=== PATIENT | female | born 1985 | race African-American/Black ===

== ENCOUNTER 2024-06-05 16:21 | Emergency (ER) | payer OTHER, SELFPAY ==
[2024-06-05] VITALS (13 sets, daily range): BP systolic 118–157; BP diastolic 65–99; PULSE 71–90; RESP 16–22; TEMP 36.6; O2SAT 100
--- NOTE | ~2024-06-05 | XR_ITS ---
XR abdomen/kub 1V DATE: 06/05/2024 17:52 INDICATION: Epigastric pain, constipation. Evaluate stool burden. TECHNIQUE: 2 supine AP views COMPARISON: None FINDINGS: Nonspecific bowel gas pattern without evidence of obstruction or significant abnormal amoun t of fecal material. No visceromegaly or abnormal calcification is evident. The lung bases are clear. Included skeletal structures are unremarkable. IMPRESSION: No significant abnormality Reviewed, dictated and finalized at [facility]. Reviewed, dictated and finalized at [facility]. IMPRESSION: No significant abnormality
--- OUTSIDE RECORDS SUMMARY | 2024-06-05 16:23 | XMS_ITS | Clinical Summary ---
Author Organization [facility] Address [address] [place] [address] Phone Care Team Providers Care Game Operator Name Role Phone Provider, None Primary Care Provider Unavailabl e Allergies No known active allergies Medications metoclopramide (REGLAN) 10 MG Tablet Take 1 Tab by mouth 4 times daily as needed for Nausea. 15 Tab 0 02/05/2015 Active potassium chloride (KLOR-CON) 20 MEQ Pack Take 1 Packet by mouth daily. 2 Packet 0 02/05/2015 Active Social History Tobacco Use Types Packs/Day Years Used Date Smoking Tobacco: Never Comments Unknown Sex and Gender Information Value Date Recorded Sex Assigned at Not on file Legal Sex Female 10:18 AM [employer] Gender Identity Not on file Sexual Orientation Not on file Last Filed Vital Signs Vital Sign Reading Time Taken Comments Blood Pressure 104/74 02/05/2015 10:41 AM [employer] Pulse 102 02/05/2015 10:41 AM [employer] Temperature 36.4 C (97.5 F) 02/05/2015 10:41 AM [employer] Respiratory Rate 18 02/05/2015 10:41 AM [employer] Oxygen Saturation 97% 02/05/2015 10:41 AM [employer] Inhaled Oxygen Concentration - - Weight 51.3 kg (113 lb) 02/05/2015 10:41 AM [employer] Height 154.9 cm (5' 1 ) 02/05/2015 10:41 AM [employer] Body Mass Index 21.35 02/05/2015 10:41 AM [employer] Plan of Treatment Not on file Insurance MEDICAID [id number] Care Teams Game Operator Relationship Specialty Start Date End Date Provider, None [place] PCP - General 02/05/15
--- OUTSIDE RECORDS SUMMARY | 2024-06-05 16:23 | XMS_ITS | Data Portability ---
Author Organization [facility] IZZYIsadora Garcia Address [address] [place] [address] Care Team Providers Care Laborer Cement Gun Placing Name Role Phone CELINE ARRINGTON Primary Care Provider [phone] Assessment No assessment recorded. Plan of Treatment Reminders Order Date Submit Date Provider Last Modified By Organization Details Last Modified Time Details Appointments None recorded. Lab microalbu min/creat inine, mass ratio, urine 023 023 APOLONIA FER, [address] [place] [address], [address], [place], [address], 3 05:11:16 BMP, serum or plasma 023 023 WARSAW FER, [address] [place] [address], [place] [address], [place], [address], 3 07:13:01 HbA1c (hemoglob in A1c), blood 023 023 WARSAW FER, [address] [place] [address], [address], [place], [address], 3 05:11:17 CBC w/ auto diff 023 023 WARSAW FER, [address] [place] [address], [place] [address], [place], [address], 3 05:08:50 iron + TIBC + ferritin, serum 023 023 APOLONIA FER, [address] [place] [address], [address], [place], [address], 3 07:13:36 TSH, ultra-sen sitive, serum 023 023 [facility], [address], [address], [place], [address], 3 07:13:35 vitamin D, 25-hydrox y, total, serum 023 023 [facility], [address], [address], [place], [address], 3 07:13:36 Referral None recorded. Procedures None recorded. Surgeries None recorded. Imaging None recorded. Medication Orders Miralax 17 gram oral powder packet 025 025 [id number], [address] [place], [address], 5 07:58:16 Patient Targets Encounter Date Encounter Id Patient Goals Patient Target Last Modified By Organization Details Last Modified Time 0.5 [email or web address] Not available 01/07/20 14:53:11 Patient Instructions Encounter Date Encounter Id Patient Instructions Last Modified By Organization Details Last Modified Time 05/09/2022 [id number] A healthy lifestyle: care instructions Not available 05/12/2022 22:48:21 1.Your blood pressure goal is less than 140/90. 2.It is important to maintain a healthy weight. 3.Try to exercise at least 30 min per day 3-5 time a week. 4. Do not salt foods. 5. If you smoke, you should quit. 6. Drink alcohol in moderation: 2, 8 oz drinks for males and 1, 8oz drink for females. Not available 05/12/2022 21:39:26 I was present and available in the Family Medicine clinic to discuss this patient's care for the duration of the appointment. I agree with the resident's assessment and plan as documented with the following addendum: None. Dr. Tameka Paredes MD Attending Physician, [facility]. [email or web address] Not available 05/16/2022 23:07:33 08/05/2022 [id number] A healthy lifestyle: care instructions Not available 08/05/2022 19:36:39 I was present and available in the family medicine clinic to discuss the patient's care during the appointment and the case was discussed with me. I agree with the resident's assessment and plan as documented. HL [email or web address] Not available 08/09/2022 16:56:31 04/16/2024 [id number] A healthy lifestyle: care instructions Not available 04/17/2024 07:58:13 I was present and available in the Family Medicine clinic to discuss this patient's care for the duration of the appointment. I agree with the resident's assessment and plan as documented with the following addendum: None. Dr. Lissette Guy MD, FMOB Attending Physician, [facility]. [email or web address] Not available 04/20/2024 13:10:46 Reason for Referral None Reported. Results Created Date Observation Date Name Description Value Unit Range Abnormal Flag Note LastModifiedBy Organization Detail LastModifiedTime 05/09/1905/10/2022 TSH REFLE X TO T4 TSH 1.830 uIU/m L 0.450- 4.500 Not Available [facility] ([facility]) [address] [place], [address], 05/10/2022 07:13:35 05/09/1905/10/2022 FE+TI BC+FE R iron bind.cap.(TI BC) 354 ug/dL 250-45 0 Not Available [facility] ([facility]) [address] [place], [address], 05/10/2022 07:13:36 05/09/1905/10/2022 FE+TI BC+FE R UIBC 240 ug/dL 131-42 5 Not Available [facility] ([facility]) [address] [place], [address], 05/10/2022 07:13:36 05/09/1905/10/2022 FE+TI BC+FE R iron 114 ug/dL 27-159 Not Available [facility] ([facility]) [address] [place], [address], 05/10/2022 07:13:36 05/09/1905/10/2022 FE+TI BC+FE R iron saturation 32 % 15-55 Not Available [facility] ([facility]) [address] [facility], [place], [address], 05/10/2022 07:13:36 05/09/1905/10/2022 FE+TI BC+FE R ferritin 41 NG/mL 15-150 Not Available [facility] ([facility]) [address] [facility], [place], [address], 05/10/2022 07:13:36 05/09/1905/10/2022 VITAM IN D, 25-HY DROXY vitamin D, 25-hydroxy 34.7 NG/mL 30.0-1 00.0 Vitam in D defic iency has been defin ed by the Insti tute of Medic ine and an Endoc rine Socie ty pract ice guide line as a level of serum 25-OH vitam in D less than 20 ng/mL (1,2) . The Endoc rine Socie ty went on to [facility] er defin e vitam in D insuf ficie ncy as a level betwe en 21 and 29 ng/mL (2). 1. IOM (Inst itute of Medic ine). 2010. Dieta ry refer ence intak es for calci um and D. Sebastian martinez [place]: The Natio [facility] Press . 2. Corazon mendoza MF, Elijah edwards [place], Nerissa off-F tutu i LANGLEY, et al. Evalu ation , treat ment, and preve ntion of vitam in D defic iency : an Endoc rine Socie ty clini kathy pract ice guide line. JCEM. 2010; 96(7) :1911 -30. Not Available [facility] ([facility]) [address] [facility], [place], [address], 05/10/2022 07:13:36 05/09/1905/10/2022 CBC WITH DIFFE RENTI AL/PL ATELE T WBC 6.9 x10e3 /uL 3.4-10 .8 Not Available [facility] ([facility]) [address] [facility], [place], [address], 05/14/2022 05:08:50 05/09/1905/10/2022 CBC WITH DIFFE RENTI AL/PL ATELE T RBC 4.53 x10e6 /uL 3.77-5 .28 Not Available [facility] ([facility]) [address] [facility], [place], [address], 05/14/2022 05:08:50 05/09/1905/10/2022 CBC WITH DIFFE RENTI AL/PL ATELE T hemoglobin 12.9 g/dL 11.1-1 5.9 Not Available [facility] ([facility]) [address] [facility], [place], [address], 05/14/2022 05:08:50 05/09/1905/10/2022 CBC WITH DIFFE RENTI AL/PL ATELE T hematocrit 39.4 % 34.0-4 6.6 Not Available [facility] ([facility]) [address] [facility], [place], [address], 05/14/2022 05:08:50 05/09/1905/10/2022 CBC WITH DIFFE RENTI AL/PL ATELE T MCV 87 fL 79-97 Not Available [facility] ([facility]) [address] [place], [address], 05/14/2022 05:08:50 05/09/1905/10/2022 CBC WITH DIFFE RENTI AL/PL ATELE T MCH 28.5 pg 26.6-3 3.0 Not Available [facility] ([facility]) [address] [place], [address], 05/14/2022 05:08:50 05/09/1905/10/2022 CBC WITH DIFFE RENTI AL/PL ATELE T MCHC 32.7 g/dL 31.5-3 5.7 Not Available [facility] ([facility]) [address] [facility], [place], [address], 05/14/2022 05:08:50 05/09/1905/10/2022 CBC WITH DIFFE RENTI AL/PL ATELE T RDW 13.0 % 11.7-1 5.4 Not Available [facility] ([facility]) [address] [facility], [place], [address], 05/14/2022 05:08:50 05/09/1905/10/2022 CBC WITH DIFFE RENTI AL/PL ATELE T platelets 271 x10e3 /uL 150-45 0 Not Available [facility] ([facility]) [address] [facility], [place], [address], 05/14/2022 05:08:50 05/09/1905/10/2022 CBC WITH DIFFE RENTI AL/PL ATELE T neutrophils 48 % notest ab. Not Available [facility] ([facility]) [address] [facility], [place], [address], 05/14/2022 05:08:50 05/09/1905/10/2022 CBC WITH DIFFE RENTI AL/PL ATELE T lymphs 43 % notest ab. Not Available [facility] ([facility]) [address] [facility], [place], [address], 05/14/2022 05:08:50 05/09/19 23 05/10/2022 CBC WITH DIFFE RENTI AL/PL ATELE T monocytes 8 % notest ab. Not Available [facility] ([facility]) [address] [facility], [place], [address], 05/14/2022 05:08:50 05/09/19 23 05/10/2022 CBC WITH DIFFE RENTI AL/PL ATELE T eos 1 % notest ab. Not Available [facility] ([facility]) [address] [facility], [place], [address], 05/14/2022 05:08:50 05/09/1905/10/2022 CBC WITH DIFFE RENTI AL/PL ATELE T basos 0 % notest ab. Not Available [facility] ([facility]) [address] [place], [address], 05/14/2022 05:08:50 05/09/1905/10/2022 CBC WITH DIFFE RENTI AL/PL ATELE T neutrophils (absolute) 3.2 x10e3 /uL 1.4-7. 0 Not Available [facility] ([facility]) [address] [place], [address], 05/14/2022 05:08:50 05/09/19 23 05/10/2022 CBC WITH DIFFE RENTI AL/PL ATELE T lymphs (absolute) 3.0 x10e3 /uL 0.7-3. 1 Not Available [facility] ([facility]) [address] [place], [address], 05/14/2022 05:08:50 05/09/1905/10/2022 CBC WITH DIFFE RENTI AL/PL ATELE T monocytes(ab solute) 0.6 x10e3 /uL 0.1-0. 9 Not Available [facility] ([facility]) [address] [place], [address], 05/14/2022 05:08:50 05/09/19 23 05/10/2022 CBC WITH DIFFE RENTI AL/PL ATELE T eos (absolute) 0.1 x10e3 /uL 0.0-0. 4 Not Available [facility] ([facility]) [address] [place], [address], 05/14/2022 05:08:50 05/09/19 23 05/10/2022 CBC WITH DIFFE RENTI AL/PL ATELE T baso (absolute) 0.0 x10e3 /uL 0.0-0. 2 Not Available [facility] ([facility]) [address] [facility], [place], [address], 05/14/2022 05:08:50 05/09/1905/10/2022 CBC WITH DIFFE RENTI AL/PL ATELE T immature granulocytes 0 % notest ab. Not Available [facility] ([facility]) [address] [place], [address], 05/14/2022 05:08:50 05/09/19 23 05/10/2022 CBC WITH DIFFE RENTI AL/PL ATELE T immature grans (abs) 0.0 x10e3 /uL 0.0-0. 1 Not Available [facility] ([facility]) [address] [facility], [place], [address], 05/14/2022 05:08:50 08/06/19 23 08/06/2022 ALBUM IN/CR EAT RATIO , RANDO M UR creatinine, urine 100.7 mg/dL notest ab. Not Available [facility] ([facility]) [address] [place], [address], 08/06/2022 05:11:16 08/06/19 23 08/06/2022 ALBUM IN/CR EAT RATIO , RANDO M UR albumin, urine 24.6 ug/mL notest ab. Not Available [facility] ([facility]) [address] [place], [address], 08/06/2022 05:11:16 08/06/19 23 08/06/2022 ALBUM IN/CR EAT RATIO , RANDO M UR alb/creat ratio 24 mg/g_ creat 0-29 Rea l: 0 - 29 Moder ately incre ased: 30 - 300 Sever sunitha incre ased: >300 Not Available [facility] ([facility]) [address] [facility], [place], [address], 08/06/2022 05:11:16 08/06/1908/06/2022 HEMOG LOBIN A1C hemoglobin A1C 5.8 % 4.8-5. 6 above high normal Predi abete s: 5.7 - 6.4 Diabe darling: >6.4 Glyce celena contr ol for adult s with diabe darling: <7.0 Not Available [facility] ([facility]) [address] [place], [address], 08/06/2022 05:11:17 08/06/1908/08/2022 BASIC METAB OLIC PANEL (8) glucose 98 mg/dL 70-99 Not Available [facility] ([facility]) [address] [place], [address], 08/08/2022 07:13:01 08/06/1908/08/2022 BASIC METAB OLIC PANEL (8) BUN 11 mg/dL 6-20 Not Available [facility] ([facility]) [address] [place], [address], 08/08/2022 07:13:01 08/06/19 23 08/08/2022 BASIC METAB OLIC PANEL (8) creatinine 0.62 mg/dL 0.57-1 .00 Not Available [facility] ([facility]) [address] [place], [address], 08/08/2022 07:13:01 08/06/1908/08/2022 BASIC METAB OLIC PANEL (8) eGFR 118 mL/mi n/1.7 3 >59 Not Available [facility] ([facility]) [address] [place], [address], 08/08/2022 07:13:01 08/06/19 23 08/08/2022 BASIC METAB OLIC PANEL (8) BUN/creatini ne ratio 18 9-23 Not Available [facility] ([facility]) [address] [facility] [place], [address], 08/08/2022 07:13:01 08/06/19 23 08/08/2022 BASIC METAB OLIC PANEL (8) sodium 140 mmol/ L 134-14 4 Not Available [facility] ([facility]) [address] [facility] [place], [address], 08/08/2022 07:13:01 08/06/19 23 08/08/2022 BASIC METAB OLIC PANEL (8) potassium 4.5 mmol/ L 3.5-5. 2 Not Available [facility] ([facility]) [address] [facility] [place], [address], 08/08/2022 07:13:01 08/06/19 23 08/08/2022 BASIC METAB OLIC PANEL (8) chloride 105 mmol/ L 96-106 Not Available [facility] ([facility]) [address] [facility] [place], [address], 08/08/2022 07:13:01 08/06/19 23 08/08/2022 BASIC METAB OLIC PANEL (8) carbon dioxide, total 22 mmol/ L 20-29 Not Available [facility] ([facility]) [address] [place], [address], 08/08/2022 07:13:01 08/06/19 23 08/08/2022 BASIC METAB OLIC PANEL (8) calcium 9.4 mg/dL 8.7-10 .2 Not Available [facility] ([facility]) [address] [place], [address], 08/08/2022 07:13:01 Result Notes None recorded. Problems Name Problem SNOMED Code Status Onset Date Resolution Date Notes Provider Name and Address Organization Details Recorded Time Elevated blood-press ure reading without diagnosis of hypertensio n 713056108 Active 2022 Celine Arrington MD Attn: Accountin g,[address], [place], [address], [place] [facility] 3 19:34:22 Uses contracepti on 70863330 Active Faith Coronado [place] null, [place] [facility] 5 11:12:46 Infective vaginitis 490149585 Active Amada Murphy [place], [place] [facility] 5 08:58:06 Anemia 918163132 Active Aliyah Isringhau sen [place], [place] [facility] 6 15:50:19 Anemia 851266620 Completed Aliyah Isringhau sen [place] [facility] 6 15:50:19 Constipatio n 10279759 Active Aliyah Isringhau sen [place] [facility] 6 15:50:19 Constipatio n 29918566 Completed Aliyah Isringhau sen [place], [place] [facility] 6 15:50:19 Problem Notes None recorded. Medical Equipment None Reported. Allergies No known drug allergies Medications Name Sig Start Date Stop Date Status Note LastModified by Organization Details LastModified Time Miralax 17 gram oral powder packet Take 1 packet every day by oral route for 14 days. 2024 active No refills required Not Available Not Available Not Available acetamino phen 325 mg tablet active Not Available Not Available No t Available fluconazo le 150 mg tablet Take 1 tablet as needed by oral route as directed for 1 day. 03/27 completed Not Available Not Available Not Available Compro 25 mg rectal supposito ry Insert 1 supposit ory every day by rectal route for 30 days. 03/27 completed Not Available Not Available Not Available pyridoxin e (vitamin B6) 25 mg tablet Take 1 tablet every 6 hours by oral route for 30 days. 2014 active Not Available Not Available Not Avai lable Vitamin tablet Take 1 tablet every day by oral route for 30 days. 2014 active Not Available Not Available Not Avai lable ferrous sulfate 325 mg (65 mg iron) tablet Take 1 tablet twice a day by oral route for 30 days. active Not Available Not Available No t Available docusate sodium 100 mg capsule Take 1 capsule twice a day by oral route for 30 days. 03/27 completed Not Available Not Available Not Available fluticaso ne propionat e 50 mcg/actua tion nasal spray,mariaelena pension active Not Available Not Available Not Available Unisom (doxylami ne) 25 mg tablet Take 1 tablet every 6-8 hours by oral route for 30 days. 2014 active Not Available Not Available Not Avai lable medroxypr ogesteron e 150 mg/mL intramusc ular suspensio n active Not Available Not Available Not Available loratadin e 10 mg tablet active Not Available Not Available Not Available metoclopr amide 10 mg tablet active Not Available Not Available No t Available nitrofura ntoin monohydra te/macroc rystals 100 mg capsule active Not Available Not Available Not Available vits 96-ferrou s fumarate 27 mg iron-foli c acid 800 mcg tablet active Not Available Not Available Not Available Diclegis 10 mg-10 mg tablet,de layed release Take 1 tablet as needed by oral route as directed . 03/27 completed Not Available Not Available Not Available Vitals Date Recorded Body height Body mass index (BMI) Body weight Body temperature Heart rate Oxygen saturation Oxygen saturation in Arterial blood by Pulse oximetry Systolic blood pressure Diastolic blood pressure Provider Name and Address Organization Details Last Updated DateTime 3 154.94 cm 36.5 kg/m2 85706.7 3 g 98.3 [degF] 86 /min 96 % 96 % 144 mm[Hg] 90 mm[Hg] Carol Cisneros CMA [facility] 3 11:41:47 Date Recorded Systolic blood pressure Diastolic blood pressure Provider Name and Address Organization Details Last Updated DateTime 05/09/2022 142 mm[Hg] 94 mm[Hg] Celine Arrington MD Attn: Accounting,[address] [facility], [place], [address], [facility] 05/09/2022 12:00:04 Date Recorded Body height Body mass index (BMI) Body weight Oxygen saturation Oxygen saturation in Arterial blood by Pulse oximetry Heart rate Body temperature Systolic blood pressure Diastolic blood pressure Provider Name and Address Organization Details Last Updated DateTime 3 154.94 cm 36.4 kg/m2 99249.1 9 g 98 % 98 % 86 /min 97.8 [degF] 129 mm[Hg] 81 mm[Hg] Erlin Ferris MA [facility] 3 10:09:46 Date Recorded Body height Body mass index (BMI) Body weight Heart rate Oxygen saturation Oxygen saturation in Arterial blood by Pulse oximetry Body temperature Systolic blood pressure Diastolic blood pressure Provider Name and Address Organization Details Last Updated DateTime 5 154.94 cm 33.9 kg/m2 51381.0 8 g 71 /min 99 % 99 % 97.9 [degF] 142 mm[Hg] 88 mm[Hg] Bertha Rehman MA [facility] 5 12:36:07 Date Recorded Systolic blood pressure Diastolic blood pressure Provider Name and Address Organization Details Last Updated DateTime 04/16/2024 132 mm[Hg] 85 mm[Hg] Celine Arrington MD Attn: Accounting[address] [place], [address], [facility] 04/17/2024 07:37:57 Social History Question Answer Notes LastModified by Organizat ion Details LastModified Time Tobacco Smoking Status Never Smoker Faith Coronado MA null, [facility] 01/19/2015 11:12:47 What Is Your Level Of Alcohol Consumption? None Information not available 05/09/2022 What Was The Date Of Your Most Recent Tobacco Screening? 04/16/2024 [email or web address] Information not available 04/16/2024 Do You Use Any Illicit Or Recreational Drugs? No Information not available 05/09/2022 Sex: Female Functional Status None recorded. Mental Status None recorded. Family History Nothing Reported. Medical History Condition Response Heart Problems N Other N Breast Cancer N Kidney or Bladder Problems N Thyroid Problems N Lung Disease N Depression N GI Problems N Acne N Eating Disorder N Breast Problem N Anemia N Anesthesia Complications N Headaches/Migraines N Anxiety Disorder N Ovarian Cancer N Diabetes N Blood Transfusions N Arthritis N Infertility N Polyps N Acid Reflux (GERD) N Cancer N Stroke N Abuse/Domestic Violence N Asthma N Endometriosis N High Cholesterol N Hepatitis N Heart Disease N Fibromyalgia N Pre-Eclampsia N Hypertension N Osteoporosis N Kidney Disease N Gynecological History Statement/Question Response Abnormal Pap N Sexually Active? Y On BCP's at Conception? N Menses Monthly N STIs/STDs N HPV Vaccine N Date of Last Pap Smear Duration of Flow (days) 5 Sexual Problems? Y LMP Approximate Obstetrics History GPAL:G 2 P 1 0 0 1 Type Value Multiple Births 0 Full Term 1 Induced 0 Spontaneous 0 Premature 0 Living 1 Ectopics 0 Total 2 Immunizations Vaccine Type Date Status Note Provider Nam e and Address Organization Details Recorded Time Influenza, split virus, trivalent, PF 01/30/2024 completed Celine Arrington MD Attn: Accounting[address] [place], [address], [facility] 04/17/2024 07:48:40 Influenza, split virus, quadrivalent, PF 01/06/2023 completed Erlin Ferris MA [facility] [place] [facility] 01/06/2023 14:54:00 Past Encounters Encounter ID Performer Location Encounter Start Date Encounter Closed Date Diagnosis/Indication Diagnosis SNOMED-CT Code Diagnosis ICD10 Code Diagnosis Note [id number] MD [facility] ([place] [address]) 2 [facility] [address] [address] 01/19/2015 10:48:11 01/19/2015 11:32:54 Gynecologic examination 35202981 Z01.419 80853651 Z33.1 test positive 068564480 Z32.01 [id number] Aliyah Murphyingservando en [facility] ([place] [address]) 2 [facility] [address] [address] 01/26/2015 09:36:40 01/26/2015 11:42:10 [id number] Z33.1 [id number] Marilu philip [address] [place] [address] 10/15/2019 12:03:23 10/26/2019 03:47:03 [id number] TAMEKA PAREDES MD [facility] [address] [facility] [address] [place] [address] 05/09/2022 11:29:57 05/13/2022 12:54:25 Fatigue 81849426 R53.83 Chronic, uncontroll ed.Pt reports fatigue and tiredness constantly . Reports enough sleep even though she works night shifts and has always.- Check iron levels, CBC r/o anemia- Check TSH- Check VitD- Discussed new stressors in life, diet, nutrition and exercise Elevated blood-pressure reading without diagnosis of hypertension 029303893 R03.0 BP in office is 144/90. Asymptomat ic. Reports mild headaches once/week which spontaneou sly resolve or relieved with NSAIDs.No previous diagnosis, not currently taking medication s. Previously diagnosed with preeclamps ia during most recent 01/2021. Follow up appointmen t per pt reports she was not prescribed any medication .- BP goal of <140/90 per JNC8 guidelines Comorbidit ies include obesity .- D/w patient increased risk for heart attack, stroke- Discussed home blood pressure monitoring and keeping blood pressure log for 2weeks.- Follow up in 4weeks for blood pressure check. If pressures are still elevated, can start ACEi/ARB- Plan to obtain BMP, Urin alb/Cr, A1c/ lipid panel- Recommende d 150 minutes of moderate-i ntensity exercise each week per AHA.- Counseled on weight loss with recommende d goal of 10%- Diet should be rich in vegetables , fruits and whole grains and low in salt- Recommend DASH or Mediterran gwen diet low fat dairy, poultry, fish, legumes, nuts. limit sugar sweetened beverages and red meats- Reduce salt intake- Advised limiting alcohol to 1 drinks per day- Call if any problems with LANGLEY, vision changes, and/or light headedness Obesity 299264238 E66.9 - BMI over 30 - D/w patient the increase risk of DM and cardiac - Discussed diet and exercise - Advised patient to limit soda, fast food, and alcohol - Encouraged meals balanced with vegetables , fruits and protein. Depression screening 171 107516 Z13.31 negative depression screeningP HQ9 score 0 [id number] Maris Babin RN [place] [id number] [address] [facility] [address] [place] [address] 08/05/2022 10:00:01 08/06/2022 16:29:18 Elevated blood-pressure reading without diagnosis of hypertension 816558483 R03.0 BP in office is 129/81. Asymptomat ic.No previous diagnosis, not currently taking medication s. Previously diagnosed with preeclamps ia during most recent 01/2021. Follow up appointmen t per pt reports she was not prescribed any medication .- BP goal of <130/80 per ACC/AHA guidelines Comorbidit ies include obesity- Discussed home blood pressure monitoring and implementi ng lifestyle changes as listed below- Plan to obtain BMP, Urin alb/Cr, A1c/ lipid panel- Recommende d 150 minutes of moderate-i ntensity exercise each week per AHA.- Counseled on weight loss- Diet should be rich in vegetables , fruits and whole grains and low in salt- Recommend DASH or Mediterran gwen diet low fat dairy, poultry, fish, legumes, nuts. limit sugar sweetened beverages and red meats- Reduce salt intake- Call if any problems with LANGLEY, vision changes, and/or light headedness Obesity [id number] E66.9 - BMI over 30- D/w patient the increase risk of DM and cardiac - Discussed diet and exercise- Advised patient to limit soda, fast food, and alcohol- Encouraged meals balanced with vegetables , fruits and protein. [id number] Erlin Ferris MA [facility] [address] [address] 01/06/2023 14:43:26 01/07/2023 14:37:52 Administration of influenza vaccine [id number] [id number] LISSETTE GUY MD [facility] [address] [address] 04/16/2024 11:40:26 04/21/2024 11:41:30 Elevated blood-pressure reading without diagnosis of hypertension [id number] R03.0 BP in office is 142/88. Asymptomat ic.Repeat 132/85, BP Goal per ACC/AHA guidelines <130/80No previous diagnosis, not currently taking medication s. Previously diagnosed with preeclamps ia during most recent 01/2021. Follow up appointmen t per pt reports she was not prescribed any medication .Comorbidi ties include obesity- Discussed home blood pressure monitoring and implementi ng lifestyle changes as listed below- Recommende d 150 minutes of moderate-i ntensity exercise each week per AHA.- Counseled on weight loss- Recommend DASH or Mediterran gwen diet- Reduce salt intake- Call if any problems with LANGLEY, vision changes, and/or light headedness Obesity [id number] E66.9 - BMI over 30- D/w patient the increase risk of DM and cardiac - Discussed diet and exercise- Advised patient to limit soda, fast food, and alcohol- Encouraged meals balanced with vegetables , fruits and protein. Depression screening 171 [id number] Z13.31 negative depression screeningP HQ9 score 2 Constipation [id number] K5 9.00 Acute, uncomplica princess. Sx for the past several days.No notable inciting events, no recent surgeries. PE positive for abdominal bloating- Discussed increased fiber in diet (list with high fiber foods and fruits shared), prune juice- encouraged to maintain adequate hydration- encouraged to keep stool and food diary for 2weeks- Rx for miralax sent to pharmacy, trial for 2weeks, if no improvemen t or other abdominal complaints RTC Adult heal th examination [id number] Z00.00 38 yo F- - all vaginal births - UTD on immunizati ons. -Pap/HPV co-testing 2020 WNL. [id number] - Mammogram not indicated at this time, no family hx of breast cancer Health Concerns Section Related Observation LastModified by Organization Detai ls LastModified Time None Recorded Concern Status LastModified by Organization Details LastModified Time None Recorded Advance Directives Directive None Recorded Payers Encounter Date Sequence Insurance Name Policy Number Policy Munoz Covered Member ID Munoz Member ID Guarantor Name 10/15/2019 1 *SELF PAY* Sc hnice Jimena 05/09/2022 1 *SELF PAY* Sc hnice Jimena 05/09/2022 1 [facility] ON OR AFTER 09/14/20 (MEDICAID REPLACEMENT - HMO) Dawitnice Jimena [id number] Schnice Jimena 08/05/2022 1 [facility] - DOS ON OR AFTER 20 (MEDICAID REPLACEMENT - HMO) Schnice Jimena [id number] Schnice Jimena 01/06/2023 1 [facility] - DOS ON OR AFTER 20 (MEDICAID REPLACEMENT - HMO) Schnice Jimena [id number] Schnice Jimena 04/16/2024 1 *SELF PAY* Sc hnice Jimena Notes Date Note Type Note Provider Name and Address Organization Details Recorded Time 05/09/2022 text/html 37 y/o F present s to establish care .Voices the following complaints, concerns, questions:- fatigue- PMHx: n/aPSHx: n/aOB/RECRUITMENT SPECIALIST Hx: [id number]: Stopped Depo shot Feb 2022, still spotting occasionallyMeds: n/aAllergies: n/aFam Hx: Both Parents: Diabetes, HTNSoc Hx:-Smoking: no- Tobacco: no- Alcohol: occasionally- Cannabis: no- Illicits: no-Screenings: Pap Smear (Nov 2020 - WNL), HIV (negative in 2020)-Vaccines: UTD fatiguePt reports increased fatigue, no matter how much rest she gets. reports ongoing for almost a year now. She reports low energy levels. Endorses headaches occasionally,Jamie es dizziness, vision changes, shortness of breath, chest pain, diarrhea, n/v, constipation, lower extremity swelling. TAMEKA PAREDES MD Attn: [address] [place], [address], [facility] 05/16/2022 23:07:37 08/05/2022 text/html Pt presents for blood pressure follow up. Pt kept log of BP but was not consistent.Patien t denies any symptoms of dizziness, LANGLEY, SOB, chest pain, leg swelling. Maris Babin RN [facility], [facility] 07/07/2023 12:12:12 04/16/2024 text/html 38F presents for annual exam. Pt reports stomach pain localized to the epigastric region that comes and goes without radiation on going for 1-2weeks. She thinks that the pain is associated with food and relieved with Aleve. She also states that she has been bloated and constipated, only having one bowel movement per week (which is unusual for her) with barely any feces production. Denies any pain with defecation, pain not relieved with defecation. Pt denies heartburn, hematochezia, previous history of epigastric pain, and any history of GI disorders.Pt denies f/c/n/v, headaches, dizziness, SOB, chest pain, abdominal pain, diarrhea, LE swelling. LISSETTE GUY MD Attn: [address]ing[address] [place], [address], [place] [facility] 04/20/2024 13:11:01 OBGyn Episode Ob Episode Information Episode Created Date Number of Fetuses Patient Bloodtype Patient rh Status Prepregnancy Weight lbs Domestic Partner Domestic Partner Phone Father Name Garment Patternmaker Status 01/26/20 15 1 A Positive CLOSED Fetus Data First Name Last Name Admitted to NICU Weight (g) Sex Living Outcome Pediatric Complications Fetus ID Race Codes Race Delivery Type trans [id number] Problems Problem Notes Problem Name Start Date End Date Resolution Snomed Code Not e Anemia [id number] Constipation [id number] Robel Calculation Initial Robel Date Initial Exam Date Initial Exam Provider Initial Ultrasound Date Last Menstrual Period Date Ultra Sound Weeks Gestation 09/18/2015 01/25/2015 [email or web address] 01/31/2015 11/12/2014 7 Eighteen To Twenty Week Robel Update Ultra Sound Date Fundal Height At Umbil Quickening Date Ultra Sound Latest Weeks Gestation Final Robel Confirmed By Final Robel Confirmed Date Final Robel Date Ultra Sound Latest Days Gestation 0 okolade 02/01/2015 09/18/19 16 0 Pre- Flowsheet Flowsheet Date 01/26/2015 Carnes Score Blood Edema Fundus Height Fundus Units Glucose Ketones Leukocytes Nitrite Labor Signs Protein Cervic Dilation Cervic Effacement Cervic Station Type Weight in lbs Pre/Post Dialysis Refused 113.77377072582 BP Diastolic BP Location Tested BP Systolic BP Type 52 98 sitting Fetus Heart Rate Present A Present Fetus Movement Comments Patient refers nausea. Did n ot pickling operator the prescription for diclegis and insurance would not pay for it. Patient was however given a sample prescription for diclegis today. Results of wet mount was reviewed with the patient. precautions given. Menstrual History Last Menstrual Date Menses Monthly On Bcp Conception Prior Menses Frequency Hcg Plus Date Menarche Onset Age 0811/12/2014 false Delivery Information Delivery Date Delivery Type Labor Anesthesia Weeks Gestation Incision Type Labor Labor Length Hrs Delivered By Post Complications Tubal Sterilization Discharge Date Comments 6 23.2 trans trans to [facility] Discharge Information Feeding Method Contraceptive Method Maternal HG B and HCT Levels
--- OUTSIDE RECORDS SUMMARY | 2024-06-05 16:23 | XMS_ITS | Referral Summary ---
Author Organization [facility] Address [address] [place] [phone] Care Team Providers Care Waiter Waitress Name Role Phone No, Physician Primary Care Provider [phone] Allergies No known active allergies Medications nitrofurantoin monohydrate (MACROBID) 100 mg capsule Take 1 capsule (100 mg total) by mouth 2 (two) times a day Antibiotic for urinary tract infection. Collaborating physician Kiel Stein MD 10 capsule 2 Active naproxen (NAPROSYN) 375 mg tablet Take 1 tablet (375 mg total) by mouth 2 (two) times a day with meals P.r.n. pain. Collaborating physician Kiel Stein MD 20 tablet 2 Active cyclobenzaprine (FLEXERIL) 5 mg tablet Take 1 tablet (5 mg total) by mouth 3 (three) times a day as needed (Take as directed to relax muscles) Collaborating physician Kiel Stein MD 20 tablet 2 Active Active Problems Problem Noted Date Diagnosed Date Lumbar strain, initial encounter 07/01/2021 Urinary tract infection in female 07/01/2021 Immunizations Immunization Administration Dates Next Due Influenza, Quadrivalent, Spl it, Preservative Free, Intramuscular 01/06/2023 Social History Tobacco Use Types Packs/Day Years Used Date Smoking Tobacco: Never Smokeless Tobacco: Never AUDIT-C Answer Date Recorded Q1: How often do you have a drink containing alc ohol? 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 Gender Identity Not on file Sexual Orientation Not on file Last Filed Vital Signs Vital Sign Reading Time Taken Comments Blood Pressure 133/100 07/01/2021 3:51 PM CDT Pulse 105 07/01/2021 3:51 PM CDT Temperature 36.8 C (98.2 F) 07/01/2021 3:51 PM CDT Respiratory Rate 18 07/01/2021 3:51 PM CDT Oxygen Saturation 100% 07/01/2021 3:51 PM CDT Inhaled Oxygen Concentration - - Weight 74.8 kg (165 lb) 07/01/2021 3:51 PM CDT Height 154.9 cm (5' 1 ) 12/13/2020 11:46 AM CDT Body Mass Index 31.18 12/13/2020 11:46 AM CDT Plan of Treatment Not on file Insurance [facility] CHOICE PLUS IDPA Care Teams Waiter Waitress Relationship Specialty Start Date End Date No, Physician PCP - General 12/13/20
--- OUTSIDE RECORDS SUMMARY | 2024-06-05 16:23 | XMS_ITS | Clinical Summary ---
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 Gender Identity Not on file Sexual Orientation Not on file Obstetrics History Para Term AB IAB SAB Ectopic Multiple Livin g Live Births 3 2 2 2 2 Date Outcome GA Total Labor Labor/2nd/3rd Weight Sex Type Anes PTL Cindy A1 A5 Name Clin 2005 Term M Vag-S pont Epidur al N Livin g [place] on White Complications:None Delivery Location:[facility] 2015 Term F Vag-S pont Epidur al N Livin g [place] na [place] on Complications:None Delivery Location:[facility] Last Filed Vital Signs Vital Sign Reading [...] 12/13/2020 11:46 AM CDT Plan of Treatment Health Maintenance Due Date Last Done Comments Cervical Cancer Screening 1985 Depression Screening 1985 Hepatitis C Screening 1985 DTaP/Tdap/Td Vaccine (1 - Tdap) 1996 Varicella Vaccines (1 of 2 - 13+ 2-dose series) 1998 Hepatitis B Screening 2003 Regular Well Visit/Exam 18-64 2003 Influenza Vaccine (#1) 2023 01/06/2023 HPV Vaccines Aged Out No longer eligi ble based on patient's age to complete this topic Pneumococcal vaccine <65 Aged Out No longer eligible based on patient's age to complete this topic Insurance [facility] CHOICE PLUS IDPA Care Teams Virtual Assistant For Advertisers Relationship Specialty Start Date End Date No, Physician PCP - General 12/13/20
--- OUTSIDE RECORDS SUMMARY | 2024-06-05 16:24 | XMS_ITS | Clinical Summary ---
Author Organization [facility] Address [address] [place] [address] Care Team Providers Care Theatre Professor Name Role Phone None, Provider MD Primary Care Provider Unavaila ble Allergies No known active allergies Medications [facility] B6 100 MG Tab 1 Active vitamin, low iron, ( VITAMIN WITH IRON) 27-0.8 MG tablet Take 1 tablet by mouth daily. Active benzocaine-men thol 20-0.5 % Aerosol Apply 1 spray topically 4 (four) times daily as needed (Perineal discomfort). 78 g 1 Active docusate sodium 100 MG capsule Take 1 capsule (100 mg total) by mouth 2 (two) times daily as needed for Constipation. 30 capsule 1 Active ferrous fumarate-vitam in C CR 65-25 MG tablet Take 1 tablet by mouth daily with breakfast. 90 tablet 1 Active ibuprofen 600 MG tablet Take 1 tablet (600 mg total) by mouth every 6 (six) hours. 90 tablet 1 Active acetaminophen 325 MG tablet acetaminophen 325 mg tablet Active doxylamine (UNISOM SLEEPTABS) 25 MG tablet Unisom (doxylamine) 25 mg tablet Take 1 tablet every 6-8 hours by oral route for 30 days. Active NIFEdipine XL 30 MG 24 hr tablet Take 2 tablets (60 mg total) by mouth daily. 30 tablet 1 1 Active Active Problems Problem Noted Date Diagnosed Date hypertension (HHS/HCC) 02/01/2021 Preeclampsia in period (HHS/HCC) 01/15 Family History Medical History Relation Comments CHF Maternal Grandfather Cancer Maternal Grandfather Diabetes Maternal Grandfather Kidney Disease Maternal Grandfather Cancer Maternal Grandmother Hypertension Mother Relation Status Comments Father Alive Maternal Grandfather Alive Maternal Grandmother Mother Alive Paternal Grandfather Paternal Grandmother Social History Tobacco Use Types Packs/Day Years Used Date Smoking Tobacco: Never Smokeless Tobacco: Never Alcohol Use Standard Drinks/Week Comments Not Currently 0 (1 standard drink = 0.6 oz pur e alcohol) Humiliation, Afraid, Rape, and Kick questionnair e Answer Date Recorded Within the last year, have y ou been afraid of your partner or ex-partner? No 02/02/2021 Within the last year, have y ou been humiliated or emotionally abused in other ways by your partner or ex-partner? No Within the last year, have y ou been kicked, hit, slapped, or otherwise physically hurt by your partner or ex-partner? No 02/02/2021 Within the last year, have y ou been raped or forced to have any kind of sexual activity by your partner or ex-partner? No 02/02/2021 Depression Answer Date Recor ded Last EPDS Total Score 1 01/28/2021 Last EPDS Self Harm Result Hardly ever 01/28 Comments No Sex and Gender Information Value Date Recorded Sex Assigned at Not on file Legal Sex Female 4:24 PM CDT Gender Identity Not on file Sexual Orientation Not on file Last Filed Vital Signs Vital Sign Reading Time Taken Comments Blood Pressure 151/90 02/03/2021 11:42 AM PARTNER ALLIANCE MANAGER Pulse 80 02/03/2021 8:47 AM PARTNER ALLIANCE MANAGER Temperature 36.8 C (98.3 F) 02/03/2021 8:47 AM PARTNER ALLIANCE MANAGER Respiratory Rate 18 02/03/2021 8:47 AM PARTNER ALLIANCE MANAGER Oxygen Saturation 96% 02/03/2021 10:11 AM PARTNER ALLIANCE MANAGER Inhaled Oxygen Concentration - - Weight 81.2 kg (179 lb) 02/01/2021 9:04 PM PARTNER ALLIANCE MANAGER Height 162.6 cm (5' 4 ) 02/01/2021 9:04 PM PARTNER ALLIANCE MANAGER Body Mass Index 30.73 02/01/2021 9:04 PM PARTNER ALLIANCE MANAGER Plan of Treatment Health Maintenance Due Date Last Done Comments Cervical Cancer Screening Pap Smear (Age 30 to 64) Every 3 Years 1985 Annual Physical 1988 DTaP, Tdap and Td Vaccines (6 - Tdap) 08/22/1999 08/21/1999, 05/21/1991, 04/21/1987, Additional history exists Hepatitis C 2003 Cervical Cancer Screening Pap with HPV Testing (Age 30 to 64) Every 5 Years 2015 Cervical Cancer Screening with HPV 2015 COVID-19 Vaccine ( season) 2023 05/24/2020, 05/03/2020 Influenza Adult (#1) 2023 Hepatitis B Vaccines Completed 08/21/1999, 11/24/1996, 07/22/1996, Additional history exists HPV Vaccines Aged Out No longer eligi ble based on patient's age to complete this topic Meningococcal B Vaccine Aged Out No l onger eligible based on patient's age to complete this topic Meningococcal Vaccine Aged Out No anthony sydnie eligible based on patient's age to complete this topic Pneumococcal Vaccine: Pediatrics (0 to 5 Years) and At-Risk Patients (6 to 64 Years) Aged Out No longer eligible based on patient's age to complete this topic RSV Immunizations Under 20 Months Aged Out No longer eligible based on patient's age to complete this topic Insurance MEDICAID Advance Directives * Full Code (Latest Code Status on File) Date Activated Date Inactivated Comments 02/01/2021 8:38 PM 02/03/2021 3:38 PM * Full Code Date Activated Date Inactivated Comments 02/01/2021 8:17 PM 02/01/2021 8:38 PM * Full Code Date Activated Date Inactivated Comments 01/26/2021 7:38 AM 01/28/2021 10:04 PM Care Teams Theatre Professor Relationship Specialty Start Date End Date None, Provider, PCP - General 01/26/21
--- OUTSIDE RECORDS SUMMARY | 2024-06-05 16:24 | XMS_ITS | Encounter Summary ---
Author Organization [facility] Address [facility] [place] [address] Care Team Providers Care Public Health Educator Name Role Phone None, Provider Primary Care Provider Pura crook Encounter Details Date Type Department Care Team (Late st Contact Info) Description 02/12/2021 Hospital Follow-up Call [facility] [place] [address] Alexia Yoder, RN Social History Tobacco Use Types Packs/Day Years [...] on file Sexual Orientation Not on file COVID-19 Exposure Response Date Recorded In the last month, have you been in contact with someone who was confirmed or suspected to have Coronavirus / COVID-19? No / Unsure 02/01/2021 7:37 PM SPACE PHYSICIST documented as of this encounter Functional Status * RETIRED Are you deaf or do you have serious difficulty hearing Answer Date of Assessment Author Status No 02/02/2021 11:02 AM SPACE PHYSICIST Acti ve * RETIRED Are you blind or do you have serious difficulty seeing, even when wearing glasses? Answer Date of Assessment Author Status No 02/02/2021 11:02 AM SPACE PHYSICIST Acti ve * Do you have serious difficulty walking or climbing stairs? Answer Date of Assessment Author Status No 02/02/2021 11:02 AM Jane Lazaro RN Active * Do you have difficulty dressing or bathing? Answer Date of Assessment Author Status No 02/02/2021 11:02 AM Jane Lazaro RN Active * Because of a physical, mental, or emotional condition, do you have difficulty doing errands alone such as visiting a doctor's office or shopping? Answer Date of Assessment Author Status No 02/02/2021 11:02 AM Jane Lazaro RN Active documented as of this encounter Mental Status * Because of a physical, mental, or emotional condition, do you have serious difficulty concentrating, remembering, or making decisions? Answer Entry Date Author Status No 02/02/2021 11:02 AM Jane Lazaro RN Active documented in this encounter Plan of Treatment Not on file documented as of this encounter Visit Diagnoses Not on filedocumented in this encounter Care Teams Public Health Educator Relationship Specialty Start Date End Date None, Provider, PCP - General 01/26/21 documented as of this encounter
--- OUTSIDE RECORDS SUMMARY | 2024-06-05 16:24 | XMS_ITS | Data Portability ---
Author Organization [employer] [facility] , [facility] Address [address] [place] [address] Care Team Providers Care Medical Lab Scientist Name Role Phone [facility] Complex Care Assessment No assessment recorded. Plan of Treatment Reminders Order Date Submit Date Provider Last Modified By Organization Details Last Modified Time Details Appointments None recorded. Lab test, urine 2020 021 [facility], [address] [place], [address], 13:16:22 Referral None recorded. Procedures None recorded. Surgeries None recorded. Imaging None recorded. Medication Orders Depo-Canvas Baster Jumpbasting a 150 mg/mL intramuscul ar suspension [address] [facility] ([place], [place]Pharmacy #[id number], [address] [place], [address], 13:56:45 Patient TargetsNo targets recorded. Patient Instructions Encounter Date Encounter Id Patient Instructions Last Modified By Organization Details Last Modified Time 02/13/2021 [id number] edinburgh depression scale* [email or web address] Not available 03/02/2021 14:06:46 03/01/2021 [id number] [facility] at Home With Your Baby: Care Instructions [email or web address] Not available 03/01/2021 13:16:22 edinburgh depression scale* [email or web address] Not available 03/29/2021 16:06:24 Reason for Referral None Reported. Results Created Date Observation Date Name Description Value Unit Range Abnormal Flag Note LastModifiedBy Organization Detail LastModifiedTime 01/27/20 21 01/26/2021 CBC WITH DIFF WBC 5.1 x10'3 /uL 4.5-11 .0 Not Available [facility] (Lab) [address], [place], [address], 01/26/2021 09:19:49 01/27/20 21 01/26/2021 CBC WITH DIFF RBC 3.63 x10'6 /uL 4.20-5 .40 low Not Available [facility] (Lab) [address], [place], [address], 01/26/2021 09:19:49 01/27/2001/26/2021 CBC WITH DIFF hemoglobin 10.1 g/dL 12.0-1 6.0 low Not Available [facility] (Lab) [address], [place], [address], 01/26/2021 09:19:49 01/27/20 21 01/26/2021 CBC WITH DIFF hematocrit 32.3 % 38.0-4 8.0 low Not Available [facility] (Lab) [address], [place], [address], 01/26/2021 09:19:49 01/27/2001/26/2021 CBC WITH DIFF MCV 89.0 fL 81.0-9 9.0 Not Available [facility] (Lab) [address], [place], [address], 01/26/2021 09:19:49 01/27/2001/26/2021 CBC WITH DIFF MCH 27.8 pg 27.0-3 1.0 Not Available [facility] (Lab) [address], [place], [address], 01/26/2021 09:19:49 01/27/20 21 01/26/2021 CBC WITH DIFF MCHC 31.3 g/dL 32.0-3 6.0 low Not Available [facility] (Lab) [address] [facility], [place], [address], 01/26/2021 09:19:49 01/27/20 21 01/26/2021 CBC WITH DIFF platelet count 229 x10'3 /uL 130-40 0 Not Available [facility] (Lab) [address] [facility], [place], [address], 01/26/2021 09:19:49 01/27/20 21 01/26/2021 CBC WITH DIFF MPV 10.3 fL 9.3-12 .2 Not Available [facility] (Lab) [address] [place], [address], 01/26/2021 09:19:49 01/27/20 21 01/26/2021 CBC WITH DIFF diff type AUTOMA WILFREDO DIFFER ENTIAL Not Available [facility] (Lab) [address] [facility], [place], [address], 01/26/2021 09:19:49 01/27/20 21 01/26/2021 CBC WITH DIFF neutrophils 50.6 % Not Available [facility] (Lab) [address] [place], [address], 01/26/2021 09:19:49 01/27/20 21 01/26/2021 CBC WITH DIFF lymphocytes 36.6 % Not Available [facility] (Lab) [place], [address], 01/26/2021 09:19:49 01/27/20 21 01/26/2021 CBC WITH DIFF monocytes 11.2 % Not Available [facility] (Lab) [address] [place] [facility] [place], [address], 01/26/2021 09:19:49 01/27/20 21 01/26/2021 CBC WITH DIFF eosinophils 0.4 % Not Available [facility] (Lab) [address], [place], [address], 01/26/2021 09:19:49 01/27/20 21 01/26/2021 CBC WITH DIFF basophils 0.2 % Not Available [facility] (Lab) [address], [place], [address], 01/26/2021 09:19:49 01/27/2001/26/2021 CBC WITH DIFF immature granulocytes 1.0 % Not Available [facility] (Lab) [address] [facility], [place], [address], 01/26/2021 09:19:49 01/27/20 21 01/26/2021 CBC WITH DIFF abs. neutrophils 2.57 x10'3 /uL 1.80-7 .70 Not Available [facility] (Lab) [address] [facility], [place], [address], 01/26/2021 09:19:49 01/27/20 21 01/26/2021 CBC WITH DIFF abs. lymphocytes 1.86 x10'3 /uL 1.00-4 .80 Not Available [facility] (Lab) [address], [place], [address], 01/26/2021 09:19:49 01/27/2001/26/2021 CBC WITH DIFF abs. monocytes 0.57 x10'3 /uL 0.24-0 .86 Not Available [facility] (Lab) [address], [place], [address], 01/26/2021 09:19:49 01/27/20 21 01/26/2021 CBC WITH DIFF abs. eosinophils 0.02 x10'3 /uL 0.04-0 .36 low Not Available [facility] (Lab) [address], [place], [address], 01/26/2021 09:19:49 01/27/20 21 01/26/2021 CBC WITH DIFF abs. basophils 0.01 x10'3 /uL 0.01-0 .08 Not Available [facility] (Lab) [place], [address], 01/26/2021 09:19:49 01/27/20 21 01/26/2021 CBC WITH DIFF abs. immature grans 0.05 x10'3 /uL 0.00-0 .49 Not Available [facility] (Lab) [place], [address], 01/26/2021 09:19:49 01/27/20 21 01/26/2021 CBC WITH DIFF RBC morphology SLIDE REVIEW ED Not Available [facility] (Lab) [address] [facility], [place], [address], 01/26/2021 09:19:49 01/27/20 21 01/26/2021 CBC WITH DIFF polychromasi a 1+ Not Available [facility] (Lab) [place], [address], 01/26/2021 09:19:49 01/27/20 21 01/26/2021 CBC WITH DIFF gutierrez cells 1+ Not Available [facility] (Lab) [place], [address], 01/26/2021 09:19:49 01/27/20 21 01/26/2021 CBC WITH DIFF platelet estimate ADEQUA TE Not Available [facility] (Lab) [place], [address], 01/26/2021 09:19:49 01/27/20 21 01/26/2021 DRUGS OF ABUSE PANEL , URINE amphetamines , urine NEGATI VE neg Not Available [facility] (Lab) [place], [address], 01/26/2021 09:30:23 01/27/20 21 01/26/2021 DRUGS OF ABUSE PANEL , URINE barbituates, urine NEGATI VE neg Not Available [facility] (Lab) [place], [address], 01/26/2021 09:30:23 01/27/20 21 01/26/2021 DRUGS OF ABUSE PANEL , URINE benzodiazapi jonas, urine NEGATI VE neg Not Available [facility] (Lab) [place], [address], 01/26/2021 09:30:23 01/27/20 21 01/26/2021 DRUGS OF ABUSE PANEL , URINE cannabinoids /THC, urine NEGATI VE neg Not Available [facility] (Lab) [place], [address], 01/26/2021 09:30:23 01/27/20 21 01/26/2021 DRUGS OF ABUSE PANEL , URINE cocaine, urine NEGATI VE neg Not Available [facility] (Lab) [place], [address], 01/26/2021 09:30:23 01/27/20 21 01/26/2021 DRUGS OF ABUSE PANEL , URINE methadone, urine NEGATI VE neg Not Available [facility] (Lab) [place], [address], 01/26/2021 09:30:23 01/27/20 21 01/26/2021 DRUGS OF ABUSE PANEL , URINE opiates, urine NEGATI VE neg Not Available [facility] (Lab) [place], [address], 01/26/2021 09:30:23 01/27/20 21 01/26/2021 DRUGS OF ABUSE PANEL , URINE phencyclidin es, urine NEGATI VE neg NOTE: RESUL TS OF THIS DRUG SCREE N SHOUL D BE USED FOR MEDIC AL PURPO SES ONLY AND NOT FOR LEGAL OR EMPLO YMENT PURPO SES. POSIT IVON RESUL TS ARE NOT CONFI RMED. MEDIC ATION S CONTA INING EPHED RINE MAY CAUSE FALSE POSIT IVON AMPHE TAMIN E CALL [phone], LAB, TO REQUE ST CONFI RMATI ON TESTI NG. IF CREAT ININE IS <40 mg/dL . RECOL LECTI ON IS CHUNG MIRELES. AMPHE TAMIN E- 500 NG/ML ABILIO TURAT E- 200 NG/ML BENZO DIAZE PINES - 200 NG/ML THC- 50 NG/ML COCAI NE- 150 NG/ML METHA DONE- 300 NG/ML OPIAT E- 300 MG/ML PCP- 25 NG/ML Not Available [facility] (Lab) [place], [address], 01/26/2021 09:30:23 01/27/20 21 01/26/2021 DRUGS OF ABUSE PANEL , URINE creatinine, urine 48.8 mg/dL 28-217 Not Available [facility] (Lab) [place], [address], 01/26/2021 09:30:23 01/27/20 21 01/26/2021 UA REFLE X TO MICRO specimen type URINE CLEAN CATCH Not Available [facility] (Lab) [address] [facility], [place], [address], 01/26/2021 09:43:27 01/27/20 21 01/26/2021 UA REFLE X TO MICRO color LIGHT YELLOW Not Available [facility] (Lab) [place], [address], 01/26/2021 09:43:27 01/27/20 21 01/26/2021 UA REFLE X TO MICRO clarity TURBID Not Available [facility] (Lab) [place], [address], 01/26/2021 09:43:27 01/27/20 21 01/26/2021 UA REFLE X TO MICRO specific gravity 1.013 1.001- 1.030 Not Available [facility] (Lab) [place], [address], 01/26/2021 09:43:27 01/27/20 21 01/26/2021 UA REFLE X TO MICRO pH, urine 6.5 5.0-9. 0 Not Available [facility] (Lab) [place], [address], 01/26/2021 09:43:27 01/27/20 21 01/26/2021 UA REFLE X TO MICRO leukocytes 500 neg abnormal Not Available [facility] (Lab) [place], [address], 01/26/2021 09:43:27 01/27/20 21 01/26/2021 UA REFLE X TO MICRO nitrite NEGATI VE neg Not Available [facility] (Lab) [place], [address], 01/26/2021 09:43:27 01/27/20 21 01/26/2021 UA REFLE X TO MICRO protein NEGATI VE mg/dL <30 Not Available [facility] (Lab) [place], [address], 01/26/2021 09:43:27 01/27/20 21 01/26/2021 UA REFLE X TO MICRO glucose NORMAL mg/dL norm Not Available [facility] (Lab) [place], [address], 01/26/2021 09:43:27 01/27/20 21 01/26/2021 UA REFLE X TO MICRO ketone NEGATI VE mg/dL neg Not Available [facility] (Lab) [place], [address], 01/26/2021 09:43:27 01/27/20 21 01/26/2021 UA REFLE X TO MICRO urobilinogen NORMAL mg/dL norm Not Available [facility] (Lab) [place], [address], 01/26/2021 09:43:27 01/27/20 21 01/26/2021 UA REFLE X TO MICRO bilirubin NEGATI VE mg/dL neg Not Available [facility] (Lab) [place], [address], 01/26/2021 09:43:27 01/27/20 21 01/26/2021 UA REFLE X TO MICRO blood NEGATI VE neg Not Available [facility] (Lab) [place], [address], 01/26/2021 09:43:27 01/27/20 21 01/26/2021 UA REFLE X TO MICRO mucous RARE /lpf Not Available [facility] (Lab) [address], [place], [address], 01/26/2021 09:43:27 01/27/20 21 01/26/2021 UA REFLE X TO MICRO WBC 7 /hpf <6 high Not Available [facility] (Lab) [address], [place], [address], 01/26/2021 09:43:27 01/27/20 21 01/26/2021 UA REFLE X TO MICRO RBC 2 /hpf <6 Not Available [facility] (Lab) [address] [facility], [place], [address], 01/26/2021 09:43:27 01/27/20 21 01/26/2021 UA REFLE X TO MICRO bacteria FEW /hpf none abnormal Not Available [facility] (Lab) [address], [place], [address], 01/26/2021 09:43:27 01/27/20 21 01/26/2021 UA REFLE X TO MICRO squamous epithelial MODERA TE /hpf Not Available [facility] (Lab) [address], [place], [address], 01/26/2021 09:43:27 01/27/20 21 01/26/2021 TYPE AND SCREE N ABO/Rh(D) A POSITI VE Not Available [facility] (Lab) [address], [place], [address], 01/26/2021 09:43:50 01/27/20 21 01/26/2021 TYPE AND SCREE N antibody screen NEGATI VE Not Available [facility] (Lab) [address] [facility], [place], [address], 01/26/2021 09:43:50 01/27/20 21 01/26/2021 TYPE AND SCREE N xm expiration 2020,2 359 Not Available [facility] (Lab) [address] [facility], [place], [address], 01/26/2021 09:43:50 01/28/2001/27/2021 COMPR EHENS IVON METAB OLIC PANEL glucose 96 mg/dL 70-99 Not Available [facility] (Lab) [address] [facility], [place], [address], 01/27/2021 08:20:13 01/28/2001/27/2021 COMPR EHENS IVON METAB OLIC PANEL BUN 7 mg/dL 7-18 Not Available [facility] (Lab) [address] [facility], [place], [address], 01/27/2021 08:20:13 01/28/20 21 01/27/2021 COMPR EHENS IVON METAB OLIC PANEL creatinine 0.53 mg/dL 0.55-1 .02 low Not Available [facility] (Lab) [address] [facility], [place], [address], 01/27/2021 08:20:13 01/28/20 21 01/27/2021 COMPR EHENS IVON METAB OLIC PANEL sodium 138 mmol/ L 136-14 5 Not Available [facility] (Lab) [address] [facility], [place], [address], 01/27/2021 08:20:13 01/28/20 21 01/27/2021 COMPR EHENS IVON METAB OLIC PANEL potassium 3.6 mmol/ L 3.5-5. 1 Not Available [facility] (Lab) [address], [place], [address], 01/27/2021 08:20:13 01/28/20 21 01/27/2021 COMPR EHENS IVON METAB OLIC PANEL chloride 110 mmol/ L 100-10 8 high Not Available [facility] (Lab) [address] [facility], [place], [address], 01/27/2021 08:20:13 01/28/20 21 01/27/2021 COMPR EHENS IVON METAB OLIC PANEL total CO2 18.5 mmol/ L 21-32 low Not Available [facility] (Lab) [place], [address], 01/27/2021 08:20:13 01/28/20 21 01/27/2021 COMPR EHENS IVON METAB OLIC PANEL calcium 8.9 mg/dL 8.5-10 .1 Not Available [facility] (Lab) [place], [address], 01/27/2021 08:20:13 01/28/20 21 01/27/2021 COMPR EHENS IVON METAB OLIC PANEL total bilirubin 0.4 mg/dL 0.2-1. 2 THIS ASSAY IS NOT RECOM NERIS D FOR PATIE NTS UNDER GOING TREAT MENT WITH ELTRO MBOPA G DUE TO THE POTEN TIAL FOR FALSE LY ELEVA WILFREDO RESUL TS. Not Available [facility] (Lab) [place], [address], 01/27/2021 08:20:13 01/28/20 21 01/27/2021 COMPR EHENS IVON METAB OLIC PANEL total protein 6.9 g/dL 6.4-8. 2 Not Available [facility] (Lab) [place], [address], 01/27/2021 08:20:13 01/28/20 21 01/27/2021 COMPR EHENS IVON METAB OLIC PANEL albumin 2.3 g/dL 3.4-5. 0 low Not Available [facility] (Lab) [place], [address], 01/27/2021 08:20:13 01/28/20 21 01/27/2021 COMPR EHENS IVON METAB OLIC PANEL AST 33 U/L 15-37 Not Available [facility] (Lab) [address], [place], [address], 01/27/2021 08:20:13 01/28/20 21 01/27/2021 COMPR EHENS IVON METAB OLIC PANEL ALT 28 U/L 14-55 Not Available [facility] (Lab) [place], [address], 01/27/2021 08:20:13 01/28/20 21 01/27/2021 COMPR EHENS IVON METAB OLIC PANEL alk phosphatase 73 U/L 50-136 Not Available [facility] (Lab) [place], [address], 01/27/2021 08:20:13 01/28/20 21 01/27/2021 COMPR EHENS IVON METAB OLIC PANEL anion gap 9.5 mmol/ L 5-15 Not Available [facility] (Lab) [place], [address], 01/27/2021 08:20:13 01/28/20 21 01/27/2021 COMPR EHENS IVON METAB OLIC PANEL BUN creatinine ratio 13.1 6-26 Not Available [facility] (Lab) [place], [address], 01/27/2021 08:20:13 01/28/20 21 01/27/2021 COMPR EHENS IVON METAB OLIC PANEL A:g ratio 0.5 ratio 1.0-2. 0 low Not Available [facility] (Lab) [place], [address], 01/27/2021 08:20:13 01/28/20 21 01/27/2021 COMPR EHENS IVON METAB OLIC PANEL est GFR nonafroameri can >90 mL/mi n/1.7 3_M2 >90 Not Available [facility] (Lab) [place], [address], 01/27/2021 08:20:13 01/28/20 21 01/27/2021 COMPR EHENS IVON METAB OLIC PANEL est GFR afric/amer >90 mL/mi n/1.7 3_M2 >90 NOTE: eGFR is not calcu lated for patie nts <18 years of age. This is an estim ated GFR (CKD EPI) and shoul d not be used for calcu latin g drug doses . Not Available [facility] (Lab) [place], [address], 01/27/2021 08:20:13 01/28/20 21 01/27/2021 URIC ACID uric acid 4.7 mg/dL 2.6-6. 0 Not Available [facility] (Lab) [place], [address], 01/27/2021 08:20:15 01/29/20 21 01/28/2021 CBC WITH DIFF WBC 8.5 x10'3 /uL 4.5-11 .0 Not Available [facility] (Lab) [place], [address], 01/28/2021 06:51:05 01/29/20 21 01/28/2021 CBC WITH DIFF RBC 3.30 x10'6 /uL 4.20-5 .40 low Not Available [facility] (Lab) [address] [facility], [place], [address], 01/28/2021 06:51:05 01/29/20 21 01/28/2021 CBC WITH DIFF hemoglobin 9.2 g/dL 12.0-1 6.0 low Not Available [facility] (Lab) [address] [facility], [place], [address], 01/28/2021 06:51:05 01/29/20 21 01/28/2021 CBC WITH DIFF hematocrit 29.3 % 38.0-4 8.0 low Not Available [facility] (Lab) [address] [facility], [place], [address], 01/28/2021 06:51:05 01/29/20 21 01/28/2021 CBC WITH DIFF MCV 88.8 fL 81.0-9 9.0 Not Available [facility] (Lab) [address] [facility], [place], [address], 01/28/2021 06:51:05 01/29/20 21 01/28/2021 CBC WITH DIFF MCH 27.9 pg 27.0-3 1.0 Not Available [facility] (Lab) [address] [facility], [place], [address], 01/28/2021 06:51:05 01/29/20 21 01/28/2021 CBC WITH DIFF MCHC 31.4 g/dL 32.0-3 6.0 low Not Available [facility] (Lab) [place], [address], 01/28/2021 06:51:05 01/29/20 21 01/28/2021 CBC WITH DIFF platelet count 205 x10'3 /uL 130-40 0 Not Available [facility] (Lab) [address], [place], [address], 01/28/2021 06:51:05 01/29/2001/28/2021 CBC WITH DIFF MPV 9.6 fL 9.3-12 .2 Not Available [facility] (Lab) [address], [place], [address], 01/28/2021 06:51:05 01/29/20 21 01/28/2021 CBC WITH DIFF diff type MANUAL DIFFER ENTIAL Not Available [facility] (Lab) [address], [place], [address], 01/28/2021 06:51:05 01/29/20 21 01/28/2021 CBC WITH DIFF seg neutrophils 68 % Not Available [facility] (Lab) [address], [place], [address], 01/28/2021 06:51:05 01/29/20 21 01/28/2021 CBC WITH DIFF lymphocytes 24 % Not Available [facility] (Lab) [address], [place], [address], 01/28/2021 06:51:05 01/29/2001/28/2021 CBC WITH DIFF monocytes 6 % Not Available [facility] (Lab) [address], [place], [address], 01/28/2021 06:51:05 01/29/2001/28/2021 CBC WITH DIFF eosinophils 2 % Not Available [facility] (Lab) [address], [place], [address], 01/28/2021 06:51:05 01/29/20 21 01/28/2021 CBC WITH DIFF abs neutrophils calculated 5.78 x10'3 /uL 1.80-7 .70 Not Available [facility] (Lab) [place], [address], 01/28/2021 06:51:05 01/29/20 21 01/28/2021 CBC WITH DIFF abs lymphocytes calculated 2.04 x10'3 /uL 1.00-4 .80 Not Available [facility] (Lab) [address] [facility], [place], [address], 01/28/2021 06:51:05 01/29/20 21 01/28/2021 CBC WITH DIFF abs monocyte calculated 0.51 x10'3 /uL 0.24-0 .86 Not Available [facility] (Lab) [place], [address], 01/28/2021 06:51:05 01/29/20 21 01/28/2021 CBC WITH DIFF abs eosinophil calculated 0.17 x10'3 /uL 0.04-0 .36 Not Available [facility] (Lab) [place], [address], 01/28/2021 06:51:05 01/29/20 21 01/28/2021 CBC WITH DIFF RBC morphology SLIDE REVIEW ED Not Available [facility] (Lab) [place], [address], 01/28/2021 06:51:05 01/29/20 21 01/28/2021 CBC WITH DIFF anisocytosis 2+ Not Available [facility] (Lab) [place], [address], 01/28/2021 06:51:05 01/29/20 21 01/28/2021 CBC WITH DIFF poikilocytos is 2+ Not Available [facility] (Lab) [address], [place], [address], 01/28/2021 06:51:05 01/29/20 21 01/28/2021 CBC WITH DIFF microcytosis 1+ Not Available [facility] (Lab) [place], [address], 01/28/2021 06:51:05 01/29/20 21 01/28/2021 CBC WITH DIFF macrocytosis 1+ Not Available [facility] (Lab) [place], [address], 01/28/2021 06:51:05 01/29/20 21 01/28/2021 CBC WITH DIFF polychromasi a 2+ Not Available [facility] (Lab) [place], [address], 01/28/2021 06:51:05 01/29/20 21 01/28/2021 CBC WITH DIFF platelet estimate ADEQUA TE Not Available [facility] (Lab) [place], [address], 01/28/2021 06:51:05 02/03/2002/02/2021 MAGNE SIUM magnesium 5.5 mg/dL 1.8-2. 4 critical high RMN MENDEZ D CRITI AB RESUL TS AT 2020 0151 TO AND READ BACK BY LINDA NOGUERA Not Available [facility] (Lab) [place], [address], 02/02/2021 02:56:46 02/04/20 21 02/03/2021 COMPR EHENS IVON METAB OLIC PANEL glucose 81 mg/dL 70-99 Not Available [facility] (Lab) [place], [address], 02/03/2021 11:11:38 02/04/20 21 02/03/2021 COMPR EHENS IVON METAB OLIC PANEL BUN 13 mg/dL 7-18 Not Available [facility] (Lab) [place], [address], 02/03/2021 11:11:38 02/04/20 21 02/03/2021 COMPR EHENS IVON METAB OLIC PANEL creatinine 0.56 mg/dL 0.55-1 .02 Not Available [facility] (Lab) [place], [address], 02/03/2021 11:11:38 02/04/20 21 02/03/2021 COMPR EHENS IVON METAB OLIC PANEL sodium 141 mmol/ L 136-14 5 Not Available [facility] (Lab) [address] [facility], [place], [address], 02/03/2021 11:11:38 02/04/20 21 02/03/2021 COMPR EHENS IVON METAB OLIC PANEL potassium 3.8 mmol/ L 3.5-5. 1 Not Available [facility] (Lab) [place], [address], 02/03/2021 11:11:38 02/04/20 21 02/03/2021 COMPR EHENS IVON METAB OLIC PANEL chloride 110 mmol/ L 100-10 8 high Not Available [facility] (Lab) [place], [address], 02/03/2021 11:11:38 02/04/20 21 02/03/2021 COMPR EHENS IVON METAB OLIC PANEL total CO2 26.6 mmol/ L 21-32 Not Available [facility] (Lab) [place], [address], 02/03/2021 11:11:38 02/04/20 21 02/03/2021 COMPR EHENS IVON METAB OLIC PANEL calcium 7.7 mg/dL 8.5-10 .1 low Not Available [facility] (Lab) [address], [place], [address], 02/03/2021 11:11:38 02/04/20 21 02/03/2021 COMPR EHENS IVON METAB OLIC PANEL total bilirubin 0.3 mg/dL 0.2-1. 2 THIS ASSAY IS NOT RECOM NEIRS D FOR PATIE NTS UNDER GOING TREAT MENT WITH ELTRO MBOPA G DUE TO THE POTEN TIAL FOR FALSE LY ELEVA WILFREDO RESUL TS. Not Available [facility] (Lab) [address] [facility], [place], [address], 02/03/2021 11:11:38 02/04/20 21 02/03/2021 COMPR EHENS IVON METAB OLIC PANEL total protein 7.7 g/dL 6.4-8. 2 Not Available [facility] (Lab) [address], [place], [address], 02/03/2021 11:11:38 02/04/20 21 02/03/2021 COMPR EHENS IVON METAB OLIC PANEL albumin 2.9 g/dL 3.4-5. 0 low Not Available [facility] (Lab) [address], [place], [address], 02/03/2021 11:11:38 02/04/20 21 02/03/2021 COMPR EHENS IVON METAB OLIC PANEL AST 116 U/L 15-37 high Not Available [facility] (Lab) [address], [place], [address], 02/03/2021 11:11:38 02/04/20 21 02/03/2021 COMPR EHENS IVON METAB OLIC PANEL ALT 107 U/L 14-55 high Not Available [facility] (Lab) [place], [address], 02/03/2021 11:11:38 02/04/20 21 02/03/2021 COMPR EHENS IVON METAB OLIC PANEL alk phosphatase 123 U/L 50-136 Not Available [facility] (Lab) [place], [address], 02/03/2021 11:11:38 02/04/20 21 02/03/2021 COMPR EHENS IVON METAB OLIC PANEL anion gap 4.4 mmol/ L 5-15 low Not Available [facility] (Lab) [place], [address], 02/03/2021 11:11:38 02/04/20 21 02/03/2021 COMPR EHENS IVON METAB OLIC PANEL BUN creatinine ratio 23.3 6-26 Not Available [facility] (Lab) [place], [address], 02/03/2021 11:11:38 02/04/20 21 02/03/2021 COMPR EHENS IVON METAB OLIC PANEL A:g ratio 0.6 ratio 1.0-2. 0 low Not Available [facility] (Lab) [place], [address], 02/03/2021 11:11:38 02/04/20 21 02/03/2021 COMPR EHENS IVON METAB OLIC PANEL est GFR nonafroameri can >90 mL/mi n/1.7 3_M2 >90 Not Available [facility] (Lab) [place], [address], 02/03/2021 11:11:38 02/04/20 21 02/03/2021 COMPR EHENS IVON METAB OLIC PANEL est GFR afric/amer >90 mL/mi n/1.7 3_M2 >90 NOTE: eGFR is not calcu lated for patie nts <18 years of age. This is an estim ated GFR (CKD EPI) and shoul d not be used for calcu latin g drug doses . Not Available [facility] (Lab) [place], [address], 02/03/2021 11:11:38 02/04/20 21 02/03/2021 URIC ACID uric acid 4.2 mg/dL 2.6-6. 0 Not Available [facility] (Lab) [place], [address], 02/03/2021 11:11:39 02/04/20 21 02/03/2021 CBC WITH DIFF WBC 5.1 x10'3 /uL 4.5-11 .0 Not Available [facility] (Lab) [place], [address], 02/03/2021 11:30:49 02/04/20 21 02/03/2021 CBC WITH DIFF RBC 4.30 x10'6 /uL 4.20-5 .40 Not Available [facility] (Lab) [place], [address], 02/03/2021 11:30:49 02/04/20 21 02/03/2021 CBC WITH DIFF hemoglobin 12.1 g/dL 12.0-1 6.0 Not Available [facility] (Lab) [place], [address], 02/03/2021 11:30:49 02/04/20 21 02/03/2021 CBC WITH DIFF hematocrit 38.8 % 38.0-4 8.0 Not Available [facility] (Lab) [place], [address], 02/03/2021 11:30:49 02/04/20 21 02/03/2021 CBC WITH DIFF MCV 90.2 fL 81.0-9 9.0 Not Available [facility] (Lab) [address], [place], [address], 02/03/2021 11:30:49 02/04/2002/03/2021 CBC WITH DIFF MCH 28.1 pg 27.0-3 1.0 Not Available [facility] (Lab) [place], [address], 02/03/2021 11:30:49 02/04/20 21 02/03/2021 CBC WITH DIFF MCHC 31.2 g/dL 32.0-3 6.0 low Not Available [facility] (Lab) [place], [address], 02/03/2021 11:30:49 02/04/20 21 02/03/2021 CBC WITH DIFF platelet count 248 x10'3 /uL 130-40 0 Not Available [facility] (Lab) [place], [address], 02/03/2021 11:30:49 02/04/20 21 02/03/2021 CBC WITH DIFF MPV 9.6 fL 9.3-12 .2 Not Available [facility] (Lab) [place], [address], 02/03/2021 11:30:49 02/04/20 21 02/03/2021 CBC WITH DIFF diff type AUTOMA WILFREDO DIFFER ENTIAL Not Available [facility] (Lab) [address], [place], [address], 02/03/2021 11:30:49 02/04/20 21 02/03/2021 CBC WITH DIFF neutrophils 46.3 % Not Available [facility] (Lab) [address], [place], [address], 02/03/2021 11:30:49 02/04/20 21 02/03/2021 CBC WITH DIFF lymphocytes 41.6 % Not Available [facility] (Lab) [address], [place], [address], 02/03/2021 11:30:49 02/04/2002/03/2021 CBC WITH DIFF monocytes 10.5 % Not Available [facility] (Lab) [address], [place], [address], 02/03/2021 11:30:49 02/04/20 21 02/03/2021 CBC WITH DIFF eosinophils 1.0 % Not Available [facility] (Lab) [address], [place], [address], 02/03/2021 11:30:49 02/04/20 21 02/03/2021 CBC WITH DIFF basophils 0.2 % Not Available [facility] (Lab) [address], [place], [address], 02/03/2021 11:30:49 02/04/20 21 02/03/2021 CBC WITH DIFF immature granulocytes 0.4 % Not Available [facility] (Lab) [address], [place], [address], 02/03/2021 11:30:49 02/04/20 21 02/03/2021 CBC WITH DIFF abs. neutrophils 2.37 x10'3 /uL 1.80-7 .70 Not Available [facility] (Lab) [place], [address], 02/03/2021 11:30:49 02/04/20 21 02/03/2021 CBC WITH DIFF abs. lymphocytes 2.13 x10'3 /uL 1.00-4 .80 Not Available [facility] (Lab) [place], [address], 02/03/2021 11:30:49 02/04/20 21 02/03/2021 CBC WITH DIFF abs. monocytes 0.54 x10'3 /uL 0.24-0 .86 Not Available [facility] (Lab) [place], [address], 02/03/2021 11:30:49 02/04/20 21 02/03/2021 CBC WITH DIFF abs. eosinophils 0.05 x10'3 /uL 0.04-0 .36 Not Available [facility] (Lab) [place], [address], 02/03/2021 11:30:49 02/04/20 21 02/03/2021 CBC WITH DIFF abs. basophils 0.01 x10'3 /uL 0.01-0 .08 Not Available [facility] (Lab) [place], [address], 02/03/2021 11:30:49 02/04/20 21 02/03/2021 CBC WITH DIFF abs. immature grans 0.02 x10'3 /uL 0.00-0 .49 Not Available [facility] (Lab) [place], [address], 02/03/2021 11:30:49 02/04/20 21 02/03/2021 CBC WITH DIFF RBC morphology SLIDE REVIEW ED Not Available [facility] (Lab) [place], [address], 02/03/2021 11:30:49 02/04/20 21 02/03/2021 CBC WITH DIFF hypochromasi a 1+ Not Available [facility] (Lab) [place], [address], 02/03/2021 11:30:49 02/04/20 21 02/03/2021 CBC WITH DIFF platelet estimate ADEQUA TE Not Available [facility] (Lab) [place], [address], 02/03/2021 11:30:49 03/01/20 21 03/01/2021 pregn cleopatra test, urine HCG negati ve Not Available [facility] [address] [place], [address], 03/01/2021 12:55:31 Result Notes None recorded. Problems Name Problem SNOMED Code Status Onset Date Resolution Date Notes Provider Name and Address Organization Details Recorded Time Lochia finding Completed 201507/03/2016 Encounte r for routine postpart um follow-u p; Progress : Stable Added By: Saba Cuenca Add to Current Problems : NO ProblemS tatus: Resolve Not Available [facility] 2 14:00:20 Family planning educatio n done [id number] Completed 201512/01/2015 Family planning advice; Severity : Moderate Progress : Stable Added By: Saba Cuenca Add to Current Problems : NO ProblemS tatus: Resolve Not Available [facility] 19:13:21 Antenata l care: multipar ous, older than 35 years [id number] Completed 202011/17/2020 Supervis ion of elderly multigra lauren, first trimeste r; Progress : Stable Added By: Gary Duffy Add to Current Problems : NO ProblemS tatus: Resolve; Start Date : 08/03/19 Super vision of elderly multigra lauren, second trimeste r; Progress : Stable Added By: Cira Aguilar Add to Current Problems : NO ProblemS tatus: Resolve Not Available [facility] 2 21:20:21 Gestatio n period, 36 weeks [id number] Completed 201401/11/2021 36 weeks gestatio n of pregnanc y; Progress : Stable Added By: Loren Cerda Add to Current Problems : NO ProblemS tatus: Resolve Not Available [facility] 21:20:[address] Concept Completed 202011/17/2020 Supervis ion of other high risk pregnanc ies, first trimeste r; Progress : Stable Added By: Gary Duffy Add to Current Problems : NO ProblemS tatus: Resolve Not Available [facility] 2 14:00:20 Sampling of vagina for Papanico laou smear Completed 202011/17/2020 Encounte r for gynecolo gical examinat ion (general ) (routine ) without abnormal findings ; Progress : Stable Added By: Cira Aguilar Add to Current Problems : NO ProblemS tatus: Resolve Not Available [facility] 2 14:00:12 Uses depot contrace ption [id number] Completed 201506/14/2020 Initiati on of Depo Provera contrace ption; Location : None Severity : Moderate Progress : Stable Added By: Indu Medina Add to Current Problems : YES ProblemS tatus: Current Initiati on of Depo Provera contrace ption; Severity : Moderate Progress : Stable Added By: Indu Medina Add to Current Problems : NO ProblemS tatus: Resolve Not Available [facility] 19:13:22 Gestatio n less than 9 weeks [id number] Completed 202011/17/2020 Less than 8 weeks gestatio n of pregnanc y; Progress : Stable Added By: Annie Moore Add to Current Problems : NO ProblemS tatus: Resolve Not Available [facility] 2 21:20:21 Gestatio n period, 9 weeks 085870 Completed 202011/17/2020 9 weeks gestatio n of pregnanc y; Progress : Stable Added By: Gary Duffy Add to Current Problems : NO ProblemS tatus: Resolve Not Available [facility] 2 14:00:19 Gestatio n period, 24 weeks [id number] Completed 202011/17/2020 24 weeks gestatio n of pregnanc y; Progress : Stable Added By: Gissel Mobley Add to Current Problems : NO ProblemS tatus: Resolve Not Available [facility] 2 21:20:19 Clinical finding Completed 201506/14/2020 Encounte r for initial prescrip tion of injectab le contrace ptive; Severity : Moderate Progress : Stable Added By: Indu Medina Add to Current Problems : NO ProblemS tatus: Resolve Not Available [facility] 19:13:22 Gestatio n period, 20 weeks 57059157 Completed 202011/17/2020 20 weeks gestatio n of pregnanc y; Progress : Stable Added By: Cira Aguilar Add to Current Problems : NO ProblemS tatus: Resolve Not Available [facility] 2 21:20:18 Syphilis test finding 503314102 Completed 202011/17/2020 Encounte r for screenin g for infectio ns with a predomin antly sexual mode of transmis justine; Progress : Stable Added By: Annie Moore Add to Current Problems : NO ProblemS tatus: Resolve Not Available [facility] 2 21:20:19 Gestatio n period, 13 weeks 23194250 Completed 202011/17/2020 13 weeks gestatio n of pregnanc y; Progress : Stable Added By: Gary Duffy Add to Current Problems : NO ProblemS tatus: Resolve Not Available [facility] 2 14:00:19 Gestatio n period, 17 weeks [id number] Completed 202011/17/2020 17 weeks gestatio n of pregnanc y; Progress : Stable Added By: Cira Aguilar Add to Current Problems : NO ProblemS tatus: Resolve Not Available [facility] 2 14:00:20 Normal pregnanc y in [place] [id number] 4106 Completed 202011/17/2020 Encounte r for supervis ion of other normal pregnanc y, first trimeste r; Severity : Moderate Progress : Stable Added By: Gary Duffy Add to Current Problems : NO ProblemS tatus: Resolve; Start Date : 06/15/19 21 Encou nter for supervis ion of other normal pregnanc y, second trimeste r; Severity : Moderate Progress : Stable Added By: Gissel Mobley Add to Current Problems : NO ProblemS tatus: Resolve Encounte r for supervis ion of other normal pregnanc y, third trimeste r; Severity : Moderate Progress : Stable Added By: Loren Cerda Add to Current Problems : YES ProblemS tatus: Current; Start Date : 03/01/20 15 Not Available [facility] 1 19:28:16 Gestatio n period, 29 weeks [id number] Completed 202011/30/2020 29 weeks gestatio n of pregnanc y; Progress : Stable Added By: Bridget Mosher Add to Current Problems : NO ProblemS tatus: Resolve Not Available [facility] 21:20:17 Gestatio n period, 31 weeks 01303906 Completed 202012/15/2020 31 weeks gestatio n of pregnanc y; Progress : Stable Added By: Loren Cerda Add to Current Problems : NO ProblemS tatus: Resolve Not Available [facility] 14:00:15 Gestatio n period, 28 weeks [id number] Completed 202011/17/2020 28 weeks gestatio n of pregnanc y; Progress : Stable Added By: Loren Cerda Add to Current Problems : NO ProblemS tatus: Resolve Not Available [facility] 14:00:13 Postpart um care Completed 201507/03/2016 Visit for routine postpart um follow-u p; Location : None Progress : Stable Added By: Saba Cuenca Add to Current Problems : YES ProblemS tatus: Resolve Not Available [facility] 2 14:00:12 Gestatio n period, 33 weeks [id number] Completed 202012/28/2020 33 weeks gestatio n of pregnanc y; Progress : Stable Added By: Loren Cerda Add to Current Problems : NO ProblemS tatus: Resolve Not Available [facility] 2 14:00:15 Normal pregnanc y [id number] Completed 201410/02/2015 Medical visit for normal pregnanc y; Location : None Progress : Stable Added By: Juani Valencia Add to Current Problems : YES ProblemS tatus: Resolve Not Available [facility] 2 14:00:15 Gestatio n period, 38 weeks 77077909 Active 2020 38 weeks gestatio n of pregnanc y; Progress : Stable Added By: Loren Cerda Add to Current Problems : YES ProblemS tatus: Current Not Available [facility] 2 14:00:16 Gestatio n period, 37 weeks 24746096 Completed 202001/19/2021 37 weeks gestatio n of pregnanc y; Progress : Stable Added By: Loren Cerda Add to Current Problems : NO ProblemS tatus: Resolve Not Available [facility] 2 14:00:16 [facility] [id number] Active 2020 Encounte r for supervis ion of other normal pregnanc y, first trimeste r; Progress : Stable Added By: Gary Duffy Add to Current Problems : NO ProblemS tatus: Resolve; Start Date : 06/15/19 Encou nter for supervis ion of other normal pregnanc y, second trimeste r; Progress : Stable Added By: Gissel Mobley Add to Current Problems : NO ProblemS tatus: Resolve; Start Date : 08/16/19 Encou nter for supervis ion of other normal pregnanc y, third trimeste r; Progress : Stable Added By: Loren Cerda Add to Current Problems : YES ProblemS tatus: Current Not Available [facility] 2 14:00:16 Anemia Active 2020 Anemia complica ting pregnanc y, third trimeste r; Progress : Stable Added By: Loren Cerda Add to Current Problems : YES ProblemS tatus: Current Not Available [facility] 2 14:00:16 Clinical finding Active 2015 Initiati on of Depo Provera contrace ption; Location : None Progress : Stable Added By: Indu Medina Add to Current Problems : YES ProblemS tatus: Current Encounte r for initial prescrip tion of injectab le contrace ptive; Progress : Stable Added By: Shital Medinahael Add to Current Problems : NO ProblemS tatus: Resolve; Start Date : 10/02/19 16 Not Available [facility] 2 14:00:18 Antenata l screenin g for malforma tion Active 2020 Encounte r for antenata l screenin g for malforma tions; Progress : Stable Added By: Cira Aguilar Add to Current Problems : YES ProblemS tatus: Current Not Available [facility] 2 14:00:19 Gestatio n period, 35 weeks [id number] Completed 202001/05/2021 35 weeks gestatio n of pregnanc y; Progress : Stable Added By: Loren Cerda Add to Current Problems : NO ProblemS tatus: Resolve Not Available [facility] 2 21:20:18 Screenin g for malignan t neoplasm of cervix Completed 202011/17/2020 Encounte r for screenin g for malignan t neoplasm of cervix; Progress : Stable Added By: Cira Aguilar Add to Current Problems : NO ProblemS tatus: Resolve Not Available [facility] 2 21:20:18 Antenata l screenin g Completed 202001/11/2021 Antenata l screenin g; unspecif ied; Location : None Progress : Stable Added By: Juani Valencia Add to Current Problems : YES ProblemS tatus: Resolve; Start Date : 03/01/20 15 Encou nter for antenata l screenin g of mother; Progress : Stable Added By: Juani Valencia Add to Current Problems : NO ProblemS tatus: Resolve; Start Date : 03/01/20 15 Encou nter for antenata l screenin g for Streptoc occus B; Progress : Stable Added By: Loren Cerda Add to Current Problems : NO ProblemS tatus: Resolve Encounte r for other specifie d antenata l screenin g; Progress : Stable Added By: Loren Cerda Add to Current Problems : YES ProblemS tatus: Current; Start Date : 06/15/19 21 Not Available [facility] 21:20:23 Notes:Initiation of Depo Pro vera contraception (V25.02) ; OnsetDate: 02/01/2016; ResolvedDate: 06/14/2020; Progress: Stable Added By: Indu Goodrich Add to Current Problems: NO ProblemStatus: Resolve Family planning advice (V25.09) ; OnsetDate: 10/02/2015; ResolvedDate: 12/01/2015; Progress: Stable Added By: Saba Cuenca Add to Current Problems: NO ProblemStatus: Resolve Encounter for anatomic survey (V28.81) ; OnsetDate: 04/26/2015; ResolvedDate: 10/02/2015; Progress: Stable Added By: Carla Bravo Add to Current Problems: NO ProblemStatus: Resolve Problem Notes None recorded. Procedures Surgical History Date Name Laterality Status Provider Name and Address Organization Details Recorded Time 2 Depo Provera Injection completed Shy Flores [place] - [facility] 12/04/2021 13:56:07 2 Depo Provera Injection completed Yana Martinez [place] - [facility] 09/03/2021 15:18:37 2 Depo Provera Injection completed Prerna Mobley [facility] [employer] [facility] 05/31/2021 12:53:19 1 Depo Provera Injection completed Nancy Bronson [facility] - [employer] 03/01/2021 12:49:48 1 Date of Last Pap Smear completed Miguelina Hansen [facility] - [employer] 02/13/2021 13:14:50 Imaging Results None recorded. Procedure Notes None recorded. Medical Equipment None Reported. Allergies No known drug allergies Medications Name Sig Start Date Stop Date Status Note LastModified by Organization Details LastModified Time naproxen 375 mg tablet TAKE 1 TABLET (375 MG TOTAL) BY MOUTH 2 (TWO) TIMES A DAY WITH MEALS NEEDED FOR PAIN active Not Available Not Available No t Available nifedipin e ER 30 mg tablet,ex tended release 03/01 completed Not Available Not Available Not Available ferrous sulfate 325 mg (65 mg iron) tablet take 1 tablet (325 mg) by oral route once day 11/17 completed ferrous sulfate 325 mg (65 mg iron) oral tablet RxNorm: 927565 Allow Substitu tion: True Refill Denied: No Edited by: Bridget Yen ) on 11/18/19 Stopped by: Bridget Yen ) on 11/18/19 Not Available Not Available Not Available promethaz ine 25 mg tablet take 1 tablet (25 mg) by oral route every 6 hours 03/01 completed prometha zine 25 mg oral tablet RxNorm: [id number] Allow Substitu tion: True Refill Denied: No Edited by: Trudy Shea) on 07/08/19 Stopped by: Trudy Shea) on Not Available Not Available Not Available docusate sodium 100 mg capsule 1 PO BID as needed 03/01 completed Not Available Not Available Not Available pyridoxin e (vitamin B6) 100 mg tablet Take 4 times daily, every 6 hours 03/01 completed pyridoxi ne (vitamin B6) 100 mg oral tablet RxNorm: [id number] Allow Substitu tion: True Refill Denied: No Edited by: Bridget Yen ) on 11/18/19 Stopped by: Bridget Yen ) on Not Available Not Available Not Available ibuprofen 600 mg tablet TAKE 1 TABLET BY MOUTH EVERY 6 HOURS 02/10 completed Not Available Not Available Not Available medroxypr ogesteron e 150 mg/mL intramusc ular suspensio n 1 INJECTIO N IM Q 3 MONTHS active Not Available Not Available No t Available cyclobenz aprine 5 mg tablet TAKE 1 TABLET (5 MG TOTAL) BY MOUTH 3 (THREE) TIMES A DAY NEEDED FOR MUSCLE SPASMS active Not Available Not Available No t Available Sleep Aid (doxylami ne) 25 mg tablet Take nightly, my take 2 times daily if needed 11/17 completed doxylami ne succinat e 25 mg oral tablet RxNorm: [id number] Allow Substitu tion: True Refill Denied: No Edited by: Bridget Yen ) on 11/18/19 Stopped by: maria eugenia(Bridget Ayers ) on 11/18/19 Not Available Not Available Not Available nitrofura ntoin monohydra te/macroc rystals 100 mg capsule TAKE 1 CAPSULE (100 MG TOTAL) BY MOUTH 2 (TWO) TIMES A DAY active Not Available Not Available No t Available iron active iron RxNorm: [id number] Refill Denied: No Refill DateOccu rred: 01/06/20 Edited by: amria eugenia(Bridget Ayers ) on 01/06/20 Stopped by: maria eugenia(Bridget Ayers ) on Not Available Not Available Not Available 03/01 completed Allow Substitu tion: False Refill Denied: No Refill DateOccu rred: 11/18/19 Edited by: Bridget Yen ) on 11/18/19 Stopped by: maria eugenia(Bridget Ayers ) on Not Available Not Available Not Available Vitals Date Recorded Body height Body mass index (BMI) Body weight Body temperature Systolic blood pressure Diastolic blood pressure Provider Name and Address Organization Details Last Updated DateTime 154.94 cm 31 kg/m2 82193.1 5 g 97.9 [degF] 110 mm[Hg] 68 mm[Hg] Miguelina Hansen [facility] 13:31:10 Date Recorded Body height Body mass index (BMI) Body weight Systolic blood pressure Diastolic blood pressure Provider Name and Address Organization Details Last Updated DateTime 03/01/2021 154.94 cm 41.5 kg/m2 09483.6 g 120 mm[Hg] 76 mm[Hg] Nancy Aiyana [facility] 12:45:26 Social History Question Answer Notes LastModified by Organizat ion Details LastModified Time Tobacco Smoking Status Never Smoker Miguelina patiño [facility] 02/13/2021 13:32:08 What Is Your Level Of Alcohol Consumption? None Information not available 02/13/2021 If You Are , What Was Your Level Of Alcohol Consumption Prior To ? None Information not available 02/13/2021 Are You Blind Or Do You Have Difficulty Seeing? No Information not available 02/13/2021 Are You Deaf Or Do You Have Serious Difficulty Hearing? No Information not available 02/13/2021 What Type Of Diet Are You Following? REGULAR Information not available 02/13/2021 How Many Children Do You Have? 3 Information not available 02/13/2021 What Is Your Relationship Status? Information not available 02/13/2021 Are You Sexually Active? Yes Information not available 02/13/2021 Do You Use Any Illicit Or Recreational Drugs? No Information not available 02/13/2021 Do You Or Have You Ever Used Any Other Forms Of Tobacco Or Nicotine? No Information not available 02/13/2021 Sex: Unknown Functional Status Question Answer Note LastModified by Organization D etails LastModified Time What is your exercise level? None Information not available 02/13/2021 Mental Status None recorded. Family History Relationship Description Onset Age of this Age Resolved Age Notes LastModified by Organization Details LastModified Time Maternal Grandfather Type 2 diabetes mellitus [email or web address] Not available 2020 14:14:02 Father No current problems or disability [email or web address] Not available 02/13 14:14:15 Mother No current problems or disability [email or web address] Not available 02/13 14:14:15 Medical History Condition Response Other Cancer N High Blood Pressure N Colon Cancer N Cytomegalovirus N Hyperthyroidism N MRSA N Breast Cancer N Herpes (HSV) N Blood Transfusion N Lung Cancer N Depression N Hypothyroidism N Incontinence N Panic Attacks N Neurological Disorder N Deep Vein Thrombosis N Anxiety Disorder N Autoimmune disease N Arthritis N Tuberculosis/Positive PPD N Shingles N Polycystic Ovarian Syndrome N Cervical Cancer N Hematuria N Chlamydia N Stroke N Varicosities N Seasonal allergies N Crohn's Disease N Alzheimer's/Dementia N COPD/Emphysema N Endometriosis N HPV/Genital Warts N IBS (Irritable Bowel Syndrome) N History of Abnormal Pap N High Cholesterol N Liver Disease N Kidney Infection N Fibromyalgia N Ulcer N Kidney Disease N HIV N Gallbladder disease N Sickle Cell Disease/Trait N Von Willebrand disease N ADD/ADHD N Eating Disorder N Anemia N Diabetes Mellitus (non-insulin dependent ) N Multiple Sclerosis N Ovarian Problems N Gonorrhea N Frequent Urinary Tract infections N Osteopenia N Headaches/migraines N GERD (reflux) N Ovarian Cancer N Diabetes (insulin dependent) N Seizures/Epilepsy N Fibroids N Asthma N Heart Attack N Lupus N Endometrial Cancer N Rubella N Blood Clotting Disorder N Bipolar Disorder N Diabetes Mellitus (during ) N Ulcerative Colitis N Hepatitis N Heart Disease N Pulmonary Embolism N RPR N Chicken Pox N Osteoporosis N Gynecological History Statement/Question Response Date of LMP 08/30/2020 Most Recent Bone Density Date of Last Pap Smear 08/30/2020 Most Recent Mammogram Current Control Method Depo-Canvas Baster Jumpbasting a Age at Menarche 19 Obstetrics History GPAL:G 3 P 3 0 0 3 Type Value Full Term 3 Living 3 Total 3 Past Encounters Encounter ID Performer Location Encounter Start Date Encounter Closed Date Diagnosis/Indication Diagnosis SNOMED-CT Code Diagnosis ICD10 Code Diagnosis Note [id number] Loren Cerda CNM [facility] [address] [place] [address] 02/13/2021 12:24:04 02/13/2021 23:20:02 state, 2 weeks 39142276 Z39.2 COUNSELING was provided today regarding the following topics:- healthy eating habits & regular exercise - continue light activity & can start lightexerc ise such as walking- Sexual activity - no vaginal penetratio n, no tampons until 6 weeks PP- may resume intercours e after 6 wks PP.- Briefly reviewed contracept ivon options & encouraged to consider preferred optionfor next visit- Continue vitamins- Baby blues & depression discussed- She denies any feelings of depression , frequent crying or feelings of harming self orothers.- EPDS is 0- Educated on the warning signs of depression and when to seek medicalatt ention.- BPs reviewed. Discussed S/s of preE. Pt cont. to take proccardia consistent ly. & reports no problems- Perineal care - use witch dixon & dermaplast as needed;- Laceration s: 1st dg labial laceration healed.- SAFE SLEEPING INSTRUCTIO NS- avoid back sleep, co-sleepin g- maintain cool environmen t- no blankets or other objects in crib that could present hazard to .- FOLLOW-UP: Schedule a follow-up appointmen t in 4 wks - induced hypertension 96461308 O13.9 Initiation of depot contraception done [id number] Z30.013 Will start at next F/u. pt has had depo before. irregular bleeding & possibilit y of amenorrhea after extended use reviewed. Also cautioned pt regarding incr weight gain that can be associated w/depo. Risk of reversible boneloss reviewed & Ca++ supplement ation rec. [id number] Loren Cerda CNM [facility] [address] [place] [address] 03/01/2021 12:39:02 03/01/2021 14:38:29 state [id number] Z39.2 COUNSELING was provided today regarding the following topics:- healthy eating habits. -- education given on weight management .- regular exercise - may resume pre-pregna ncy frequency and intensity as tolerated- Sexual activity - may resume intercours e & use backup contracept ion as needed.- Dietary supplement s: continue vitamins- Paramedical Aide screening: maintain recommende d screening guidelines including PAP screeninga s indicated- Depression - She denies any feelings of depression , frequent crying or feelings of harming self or others.- EPDS is 2_.- Educated on the warning signs of depression and when to seek medicalatt ention.- SAFE SLEEPING INSTRUCTIO NS- avoid back sleep, co-sleepin g,- maintain cool environmen t,- no blankets or other objects in crib that could present hazard to .- Resume normal activity- May return to work w/o restrictio n when specified maternity leave is completed. - FOLLOW-UP: Schedule a follow-up appointmen t as needed Initiation of depot contraception done [id number] Z30.013 Started first injection pt has had depo before. irregular bleeding & possibilit y of amenorrhea after extended use reviewed. Also cautioned pt regarding incr weight gain that can be associated w/depo. Risk of reversible bone loss reviewed & Ca++ supplement ation rec. [id number] Loren Cerda CNM [facility] [address] [place] [address] 05/31/2021 12:27:49 05/31/2021 13:00:37 [id number] Loren Cerda [facility] [address] [place] [address] 09/03/2021 11:55:55 09/03/2021 12:24:27 Surveillance of depot contraception done [id number] 9104 Z30.42 [id number] Loren Owens Prashant JAMESDaryn [facility] [address] [place] [address] 12/04/2021 13:37:55 12/04/2021 14:24:09 Surveillance of depot contraception done [id number] 9104 Z30.42 Health Concerns Section Related Observation LastModified by Organization Detai ls LastModified Time None Recorded Concern Status LastModified by Organization Details LastModified Time None Recorded Advance Directives Directive None Recorded Payers Encounter Date Sequence Insurance Name Policy Number Policy Munoz Covered Member ID Munoz Member ID Guarantor Name 02/13/2021 1 [facility] [place] Clif Clement [id number] Marli Clement 03/01/2021 1 [facility] ([facility]) [place] Jim[place] [id number] Dawitnicneil Clement 05/31/2021 2 [place] N Jimena [id number] Schnice N Jimena 09/03/2021 2 [place] Marli Clement [id number] [place] Clif Clement 12/04/2021 2 [place] [facility] [facility] Schnice N Jimena [id number] Schnice N Jimena 12/04/2021 1 [facility] (O) [place] Clif Clement [id number] Marli Clement Notes Date Note Type Note Provider Name and Address Organization Details Recorded Time 02/13/2021 text/html Ms. Clement is her e for her post check up. She is now 2 weeks . She delivered with Loren Cerda CNM's assistance on01/28/2021 via spontaneous vaginal delivery. Episiotomy was not performed. She received 1st degree lacerations. . Labor was induced and her labor course was unomplicated She had epidural_anesthesia. Her course was complicated by readmission d/t postaprtum pre-eclampsia. She delivered a female infant named Catarina. weight was 7 pounds and 0 ounces.No complications were encountered, and no anomalies were identified. The infant was sent home with mother. Patient Name: MARLI CLEMENT Date of : 1985Date of Service: 01/27/2021elivery Information for Marli Collazo, Girl Bribor Event TimesLabor onset date/time: 01/27/21 0630Dilation complete date/time: 01/27/21 1148Preterm labor?: NoCervical ripening date/time: 01/26/21 2207Cervical ripening type: MisoprostolRupture date/time: 01/27/21 1205Rupture type: SROMFluid color: ClearInduction: Oxytocin, Pacheco/EASI, MisoprostolAugmentation : NoneLabor complications: NoneDelivery (Maternal)Episiotomy: NonePerineal lacerations: NoneLabial laceration: left Repaired: YesVaginal laceration: Yes Repaired: YesCervical laceration: NoQBL at Delivery 112 mLPresentation and PositionPresentation: VertexPosition: Right Occiput AnteriorPain ManagementMethod: EpiduralDelivering clinician: Moshe Small ()Time head delivered: 01/27/2021 12:52 PMBirth date/time: [birth year] 1252Delivery type: Vaginal, SpontaneousCordVessels: 3 VesselsComplications: NoneCord blood disposition: LabGases sent?: YesResuscitationMethod: Tactile StimulationSuction: Bulb SyringeSuction Comments: delee 1 ml clearNewborn MeasurementsWeight: 7 lb 0.1 oz Length: 20 Head circumference: 35.5 cmPlacentaDate/time: 01/27/2021 12:56 PMRemoval: SpontaneousAppearance: IntactDisposition: discardedThird stage active managment performed: YesNewborn AssessmentLiving status: Living; Apgars 8/9Pt presented for elective IOL @ term. She received epidural for laboranesthesia. Induction of labor was performed w/cytotec, Cook balloon andoxytocin. Pt progressed rapidly to completely dilated after balloon placementand oxytocin. AROM was performed at the time of delivery. She pushed effectivelyfor approximately 40 min to deliver a viable female named Catarina. Babywas vigorous at time of and placed skin to skin with mom. Cord was cutafter one minute delay by FOB. Cord blood and gases were collected. The placentadelivered spontaneously and intact. Placenta and membranes were of normal colorw/3VC and central cord insertion. The uterus was cleared of all clots anddebris. Firm uterine tone was established with IV oxytocin and uterine massage.A 1st dg left labial laceration was repaired under epidural anesthesia. Thecervix was visualized and no lacerations were seen. 1000mcg of cytotec wereplaced rectally. Routine PP initiated.Parents are bonding appropriately w/babyCatarina. Loren Cerda CNM [address] [place] [address], [phone], [employer] 02/13/2021 23:19:49 03/01/2021 text/html VisitReported bypatient.Associated Symptoms:no abnormal bleeding; no vaginal discharge; no pelvic pain; laceration well healed; no constipation; no fecal incontinence; no dysuria; no urinary incontinence; no fever; no problems; no mastitis; normal mood Loren Cerda CNM [address] [place] [address], [phone], [employer] 03/01/2021 14:38:26 09/03/2021 text/html pt is here for her DEPO Stefania Cerda CNM [address] [place] [address], [phone], [employer] 09/04/2021 01:22:05 OBGyn Episode Ob Episode Information Episode Created Date Number of Fetuses Patient Bloodtype Patient rh Status Prepregnancy Weight lbs Domestic Partner Domestic Partner Phone Father Name Head Host/Hostess Status 02/14/20 21 1 CLOSED Fetus Data First Name Last Name Admitted to NICU Weight (g) Sex Living Outcome Pediatric Complications Fetus ID Race Codes Race Delivery Type 2749.67 4704 M Full Term [id number] Robel Calculation Initial Robel Date Initial Exam Date Initial Exam Provider Initial Ultrasound Date Last Menstrual Period Date Ultra Sound Weeks Gestation 0 Eighteen To Twenty Week Robel Update Ultra Sound Date Fundal Height At Umbil Quickening Date Ultra Sound Latest Weeks Gestation Final Robel Confirmed By Final Robel Confirmed Date Final Robel Date Ultra Sound Latest Days Gestation 0 0 Menstrual History Last Menstrual Date Menses Monthly On Bcp Conception Prior Menses Frequency Hcg Plus Date Menarche Onset Age Delivery Information Delivery Date Delivery Type Labor Anesthesia Weeks Gestation Incision Type Labor Labor Length Hrs Delivered By Post Complications Tubal Sterilization Discharge Date Comments 6 [facility]- idural [facility] false [facility] / induced Discharge Information Feeding Method Contraceptive Method Maternal HG B and HCT Levels Ob Episode Information Episode Created Date Number of Fetuses Patient Bloodtype Patient rh Status Prepregnancy Weight lbs Domestic Partner Domestic Partner Phone Father Name Head Host/Hostess Status 02/14/20 21 1 CLOSED Fetus Data First Name Last Name Admitted to NICU Weight (g) Sex Living Outcome Pediatric Complications Fetus ID Race Codes Race Delivery Type 3203.26 6704 F Full Term [id number] Robel Calculation Initial Robel Date Initial Exam Date Initial Exam Provider Initial Ultrasound Date Last Menstrual Period Date Ultra Sound Weeks Gestation 0 Eighteen To Twenty Week Robel Update Ultra Sound Date Fundal Height At Umbil Quickening Date Ultra Sound Latest Weeks Gestation Final Robel Confirmed By Final Robel Confirmed Date Final Robel Date Ultra Sound Latest Days Gestation 0 0 Menstrual History Last Menstrual Date Menses Monthly On Bcp Conception Prior Menses Frequency Hcg Plus Date Menarche Onset Age Delivery Information Delivery Date Delivery Type Labor Anesthesia Weeks Gestation Incision Type Labor Labor Length Hrs Delivered By Post Complications Tubal Sterilization Discharge Date Comments 1 [facility] idural Delivere d by Loren Cerda CNM Discharge Information Feeding Method Contraceptive Method Maternal HG B and HCT Levels Ob Episode Information Episode Created Date Number of Fetuses Patient Bloodtype Patient rh Status Prepregnancy Weight lbs Domestic Partner Domestic Partner Phone Father Name Head Host/Hostess Status 02/14/20 21 1 CLOSED Fetus Data First Name Last Name Admitted to NICU Weight (g) Sex Living Outcome Pediatric Complications Fetus ID Race Codes Race Delivery Type 2891.64 9 F Prematur e [id number] Robel Calculation Initial Robel Date Initial Exam Date Initial Exam Provider Initial Ultrasound Date Last Menstrual Period Date Ultra Sound Weeks Gestation 0 Eighteen To Twenty Week Robel Update Ultra Sound Date Fundal Height At Umbil Quickening Date Ultra Sound Latest Weeks Gestation Final Robel Confirmed By Final Robel Confirmed Date Final Robel Date Ultra Sound Latest Days Gestation 0 0 Menstrual History Last Menstrual Date Menses Monthly On Bcp Conception Prior Menses Frequency Hcg Plus Date Menarche Onset Age Delivery Information Delivery Date Delivery Type Labor Anesthesia Weeks Gestation Incision Type Labor Labor Length Hrs Delivered By Post Complications Tubal Sterilization Discharge Date Comments [facility] [address] Connor Discharge Information Feeding Method Contraceptive Method Maternal HG B and HCT Levels
--- OUTSIDE RECORDS SUMMARY | 2024-06-05 16:24 | XMS_ITS | Encounter Summary ---
Author Organization [facility] Address [facility] [place] [address] Care Team Providers Care Chemicals Distiller Name Role Phone None, Provider Primary Care Provider Pura crook Encounter Details Date Type Department Care Team (Late st Contact Info) Description 02/10/2021 Hospital Follow-up Call [facility] [place] [address] Khushboo Prado, RN Social History Tobacco Use Types Packs/Day [...] COVID-19? No / Unsure 02/01/2021 7:37 PM DIRECTOR AIRPORT documented as of this encounter Functional Status * RETIRED Are you deaf or do you have serious difficulty hearing Answer Date of Assessment Author Status No 02/02/2021 11:02 AM DIRECTOR AIRPORT Acti ve * RETIRED Are you blind or do you have serious difficulty seeing, even when wearing glasses? Answer Date of Assessment Author Status No 02/02/2021 11:02 AM DIRECTOR AIRPORT Acti ve * Do you have serious [...] on filedocumented in this encounter Care Teams Chemicals Distiller Relationship Specialty Start Date End Date None, Provider, PCP - General 01/26/21 documented as of this encounter
[2024-06-05 16:39] LABS: BEDSIDEPREGUCG Negative (Negative)
[2024-06-05 16:44] LABS: Basophils Percent Auto 0.5 % (0.2-1.2); Eosinophils Absolute Auto 0.2 K/mm3 (0-0.3); Eosinophils Percent Auto 3.5 % (0-4.4); Hematocrit 33.7 % (37.0-47.0); Hemoglobin 10.2 g/dL (12.0-15.0); Immature Granulocyte Absolute 0.01 K/mm3 (0.00-0.031); Immature Granulocyte Percent A 0.2 % (0-0.5); Lymphocytes Absolute Auto 2.75 K/mm3 (0.9-3.2); Mean Corpuscular HGB Conc 30.3 g/dl (32-36); Mean Corpuscular Hemoglobin 23.5 pg (26-34); Mean Corpuscular Volume 77.6 fl (80-100); Mean Platelet Volume 9.5 fl (7.4-10.4); Monocytes Absolute Auto 0.6 K/mm3 (0.1-0.6); Monocytes Percent Auto 8.7 % (2.6-8.5); Neutrophils Percent Auto 45.1 % (45.5-73.1); Platelet Count Result 390 k/mm3 (150-375); Red Blood Count 4.34 M/mm3 (4.2-5.4); Red Cell Distribution Width 16.9 % (11.5-14.5); White Blood Count 6.6 K/mm3 (4.5-10.0)
[2024-06-05 16:48] LABS: Add Urine Microscopic? YES; Appearance Urine Clear (Clear); Bacteria Urine None Seen /hpf; Bilirubin Urine Negative (Negative); Blood Urine 1+ (Negative); Color Urine Yellow (Yellow); Glucose Urine UA Negative (Negative); Ketones Urine Negative (Negative); Leukocyte Esterase Ur Trace LEU/UL (Negative); Nitrate Urine Negative (Negative); Non Pathogenic Casts 0-2; Protein Urine Negative (Negative); Specific Grav Ur 1.021 (1.001-1.035); Squamous Epithelial Cell Urine None Seen /hpf (Few); WBC Urine 0-5 /hpf (0-3)
[2024-06-05 16:54] LABS: Alanine Aminotransferase 13 U/L (6-35); Albumin Level 4.4 g/dL (3.5-5.1); Alkaline Phosphatase 97 U/L (38-126); Anion Gap 8 mmol/L (4-12); Aspartate Amino Transferase 21 U/L (14-36); Bilirubin,Total 0.5 mg/dL (0.2-1.3); Blood Urea Nitrogen 14 mg/dL (7-17); Carbon Dioxide 25 mmol/L (22-30); Chloride 105 mmol/L (98-107); Estimated CRCL calculation 97 ml/min; Estimated Glomerular Filt Rate > 60; Glucose 97 mg/dL (65-110); Lipase 33 U/L (23-300); Potassium 3.8 mmol/L (3.4-5.0); Sodium 138 mmol/L (137-145)
--- NOTE | 2024-06-05 16:55 | ED_ITS ---
HPI - Abdominal Pain General Chief Complaint: Abdominal Pain Stated Complaint: abd pain Time Seen by Provider: 06/05/24 16:48 Source: patient and family Mode of arrival: ambulatory Limitations: no limitations History of Present Illness HPI narrative: Patient presents with epigastric abdominal pain. She notes that she has been having symptoms occur intermittently for awhilebut they have become more constant over the past week. She saw her PCP (through [facility]) early who thought it might be due to constipation and recommended prune juice and Miralax. LBM was this morning, small. She has been constipated with infrequent stools. No diarrhea or bloody bowel movements. No vaginal discharge; currently on her menstrual period. No dysuria, urgency, frequency, hematuria. No nausea/vomiting, fevers/chills. She feels like she is bloated when she menstruates but otherwise not particularly. Intermittent appetite. This has never happened before this past year. Has not seen a it help desk analyst. No prior abdominal surgeries. In addition to the meds/remedy mentioned above, tried bisacodyl. Certain foods seem to cause/exacerbate symptoms, particularly greasy or spicy. Related Data Allergies Allergy/AdvReac Type Severity Reaction Status Date / Time No Known Allergies Allergy Unverified 11/11/14 19:58 [facility] Social History Social History (Updated 06/05/24 @ 23:33 by Shabana Levin MD) Living arrangements: with family Additional living arrangements comments: Occupation/Education: occupation Exam 2 Narrative: GENERAL: Well-appearing, well-nourished, and in no acute distress. HEAD: Normocephalic, atraumatic. EYES: Non injected, non icteric ENT: Nares clear, no rhinorrhea or epistaxis. NECK: Supple. CHEST: Speaking in full sentences. No respiratory distress. HEART: Regular rate and rhythm. . ABDOMEN: Soft, nondistended. No tenderness to palpation. No rigidity/guarding. not peritoneal. Logan sign negative. EXTREMITIES: Normal range of motion. No lower extremity edema. SKIN: Warm, dry, no rash. NEURO: No focal deficits. Alert and oriented x3. PSYCH: Normal mood and affect. Course Vital Signs Vital signs: Vital Signs Temperature 97.9 F 06/05/24 16:25 Pulse Rate 82 06/05/24 16:25 Respiratory Rate 16 06/05/24 16:25 Blood Pressure 157/99 H 06/05/24 16:25 Pulse Oximetry 100 06/05/24 16:25 Oxygen Delivery Room Air 06/05/24 16:25 Temperature 97.9 F 06/05/24 18:54 Pulse Rate 82 06/05/24 18:54 Respiratory Rate 18 06/05/24 18:54 Blood Pressure 130/68 06/05/24 18:54 Pulse Oximetry 100 06/05/24 18:54 Oxygen Delivery Room Air 06/05/24 16:25 MDM - Abdominal Pain MDM Narrative Medical decision making narrative: Patient presents with epigastric abdominal pain. In the emergency department she is afebrile with acceptable vital signs though with hypertension. Microcytic anemia and mild thrombocytosis. No prior for comparison, the latter probably an acute phase reactant. Dicyclomine and Protonix ordered. Some blood in her urine but she is currently menstruating. test negative. Patient reassessed at 6:45 p.m.. She states the medications helped and she is feeling much better. In sum, This patient presents with abdominal pain of unclear etiology. Their evaluation has not identified an emergent etiology for the abdominal pain. Specifically, given the very benign exam, normal laboratory values, and lack of significant risk factors, I have a very low suspicion for appendicitis, ischemic bowel, bowel perforation, or any other life threatening disease. I have discussed with the patient the need to follow-up as noted on the discharge instructions, or return to the Emergency Department immediately if the pain worsens, develops fever, persistent and uncontrollable vomiting, or for any new symptoms or concerns. I discussed with the patient that this presentation today for abdominal pain could represent something more serious and further/more extensive work up may be considered. Although the tests in the ED were essentially normal, there is still a possibility of a process such as appendicitis, diverticulitis, cholecystitis, ulcer, early bowel obstruction, mesenteric ischemia, kidney stone, or even kidney infection which could subsequently cause disability or . The patient verifies understanding. Stable for discharge. Provided Rx for omeprazole. Differential Diagnosis Differential diagnosis: Likely abdominal pain, constipation, diverticulitis, endometriosis (especially given symptoms occuring now, while currently mensturating ), pancreatitis and other (IBS; peptic/gastric ulcer; gastritis; biliary pathology ) Lab Data Attestation: I reviewed the patient's lab results. Lab results narrative: Normal renal function 06/05/24 16:35 06/05/24 16:35 Labs: Lab Results 06/05/24 06/05/24 Range/Units 16:35 16:38 WBC 6.6 (4.5-10.0) K/mm3 RBC 4.34 (4.2-5.4) M/mm3 Hgb 10.2 L (12.0-15.0) g/dL Hct 33.7 L (37.0-47.0) % MCV 77.6 L (80-100) fl MCH 23.5 L (26-34) pg MCHC 30.3 L (32-36) g/dl RDW 16.9 H (11.5-14.5) % Plt Count 390 H (150-375) k/mm3 MPV 9.5 (7.4-10.4) fl Immature Gran % (Auto) 0.2 (0-0.5) % Neut % (Auto) 45.1 L (45.5-73.1) % Lymph % (Auto) 42.0 (18.3-44.2) % [place] % (Auto) 8.7 H (2.6-8.5) % Eos % (Auto) 3.5 (0-4.4) % Baso % (Auto) 0.5 (0.2-1.2) % Lymph # (Auto) 2.75 (0.9-3.2) K/mm3 [place] # (Auto) 0.6 (0.1-0.6) K/mm3 Eos # (Auto) 0.2 (0-0.3) K/mm3 Baso # (Auto) 0.0 (0.0-0.1) K/mm3 Abs Immat Gran (auto) 0.01 (0.00-0.031) K/mm3 Absolute Neuts (auto) 3.0 (1.3-6.7) K/mm3 Absolute Nucleated RBC 0.000 (0.0-0.012) K/mm3 Nucleated RBC % 0.0 (0.0-0.2) % Sodium 138 (137-145) mmol/L Potassium 3.8 (3.4-5.0) mmol/L Chloride 105 (98-107) mmol/L Carbon Dioxide 25 (22-30) mmol/L Anion Gap 8 (4-12) mmol/L BUN 14 (7-17) mg/dL Creatinine 0.65 L (0.7-1.0) mg/dL Estim Creat Clear Calc 97 ml/min Estimated GFR > 60 (59 - ) Glucose 97 (65-110) mg/dL Calcium 9.0 (8.4-10.2) mg/dL Total Bilirubin 0.5 (0.2-1.3) mg/dL AST 21 (14-36) U/L ALT 13 (6-35) U/L Alkaline Phosphatase 97 (38-126) U/L Total Protein 9.0 H (6.3-8.2) g/dL Albumin 4.4 (3.5-5.1) g/dL Lipase 33 (23-300) U/L Urine Color Yellow (Yellow) Urine Appearance Clear (Clear) Urine pH 6.0 (5.0-9.0) Ur Specific [place] 1.021 (1.001-1.035) Urine Protein Negative (Negative) mg/dL Urine Glucose (UA) Negative (Negative) mg/dL Urine Ketones Negative (Negative) mg/dL Ur Blood (Man) 1+ H (Negative) Urine Nitrate Negative (Negative) Urine Bilirubin Negative (Negative) Urine Urobilinogen 1.0 (<2.0) mg/dL Leukocyte Esterase Rfl Trace H (Negative) ALEJANDRO/UL Urine RBC 3-5 H (0-2) /hpf Urine WBC 0-5 (0-3) /hpf Ur Squamous Epith Cells None seen (Few) /hpf Urine Bacteria None seen /hpf Urine Casts 0-2 POC Urine HCG, Qual Negative (Negative) Imaging Data Attestation: I personally reviewed and interpreted this imaging study as follows: My impression: Nonspecific appearance of abdominal x-ray on my independent interpretation; haustra are present but without significant stool burden Radiologist's impression: ITS Impressions Abdomen X-Ray 06/05/24 18:07 IMPRESSION: No significant abnormality Discharge Plan Discharge Clinical Impression: Epigastric abdominal pain, Microcytic anemia, Thrombocytosis Patient Disposition: Home, Self-Care Condition: Stable Instructions: Antibiotic Form, Gastritis (ED), Anemia (ED), Epigastric Pain (ED) Additional Instructions: No clear cause of your symptoms. Given their relation to food that you eat (like greasy foods or spicy foods), this might represent gastritis or an issue with your gallbladder although your liver enzymes were normal. You can trial short course of the medication prescribed. Follow-up with your primary care physician whom you saw recently. Return to the Emergency Department if the pain worsens, develops fever, persistent and uncontrollable vomiting, or for any new symptoms or concerns. Patient Language: Bruneian Prescriptions: New omeprazole 20 mg tablet,delayed release (DR/EC) 20 mg PO DAILY Qty: 14 0RF Follow-up/Referrals: PHYSICIAN,ALLOY WEIGHER [Primary Care Provider] - Stand Alone Forms: Work/School Release IP Time of Disposition: 18:48
--- OUTSIDE RECORDS SUMMARY | 2024-06-05 16:56 | XMS_ITS | Clinical Summary ---
Author Organization [facility] Address [address] [place] [address] Phone Care Team Providers Care Nca Certified Concierge Name Role Phone Provider, None Primary Care [...] on file Legal Sex Female 10:18 AM INSTRUCTIONAL SYSTEMS DESIGNER Gender Identity Not on file Sexual Orientation Not on file Last Filed Vital Signs Vital Sign Reading Time Taken Comments Blood Pressure 104/74 02/05/2015 10:41 AM INSTRUCTIONAL SYSTEMS DESIGNER Pulse 102 02/05/2015 10:41 AM INSTRUCTIONAL SYSTEMS DESIGNER Temperature 36.4 C (97.5 F) 02/05/2015 10:41 AM INSTRUCTIONAL SYSTEMS DESIGNER Respiratory Rate 18 02/05/2015 10:41 AM INSTRUCTIONAL SYSTEMS DESIGNER Oxygen Saturation 97% 02/05/2015 10:41 AM INSTRUCTIONAL SYSTEMS DESIGNER Inhaled Oxygen Concentration - - Weight 51.3 kg (113 lb) 02/05/2015 10:41 AM INSTRUCTIONAL SYSTEMS DESIGNER Height 154.9 cm (5' 1 ) 02/05/2015 10:41 AM INSTRUCTIONAL SYSTEMS DESIGNER Body Mass Index 21.35 02/05/2015 10:41 AM INSTRUCTIONAL SYSTEMS DESIGNER Plan of Treatment Not on file Insurance MEDICAID [id number] Care Teams Nca Certified Concierge Relationship Specialty Start Date End Date Provider, None [place] PCP - General 02/05/15
--- OUTSIDE RECORDS SUMMARY | 2024-06-05 16:56 | XMS_ITS | Clinical Summary ---
Author Organization [facility] Address [address] [place] [id number] Care Team Providers Care Hearing Therapy Teacher Name Role Phone No, Physician Primary Care Provider [phone] Allergies No known active allergies Medications nitrofurantoin [...] on file Legal Sex Female 9:13 PM COMFORT STATION ATTENDANT Gender Identity Not on file Sexual Orientation Not on file Obstetrics History Para Term AB IAB SAB Ectopic Multiple Livin g Live Births 3 2 2 2 2 Date Outcome GA Total Labor Labor/2nd/3rd Weight Sex Type Anes PTL Cindy A1 A5 Name Clin 2005 Term M Vag-S pont Epidur al N Livin g [place] on White Complications:None Delivery Location:[facility] 2015 Term F Vag-S pont Epidur al N Livin g [place] na [place] on Complications:None Delivery Location:[facility] Last Filed Vital Signs Vital Sign Reading [...] patient's age to complete this topic Insurance [facility] CHOICE PLUS [facility] HMO/PPO Address: [facility] [address] [place] [address] IDPA Care Teams Hearing Therapy Teacher Relationship Specialty Start Date End Date No, Physician PCP - General 12/13/20
--- OUTSIDE RECORDS SUMMARY | 2024-06-05 16:56 | XMS_ITS | Referral Summary ---
Author Organization [facility] Address [address] [place] [id number] Care Team Providers Care Die Technician Name Role Phone No, Physician Primary Care Provider [phone] Allergies No known active allergies Medications nitrofurantoin [...] on file Legal Sex Female 9:13 PM SCRUB TECH Gender Identity Not on file Sexual Orientation [...] Plan of Treatment Not on file Insurance [facility] CHOICE PLUS IDPA Care Teams Die Technician Relationship Specialty Start Date End Date No, Physician PCP - General 12/13/20
--- OUTSIDE RECORDS SUMMARY | 2024-06-05 16:57 | XMS_ITS | Encounter Summary ---
Author Organization [facility] Address [facility] [place] [address] Care Team Providers Care Construction Driver Name Role Phone None, Provider Primary Care Provider Pura crook Encounter Details Date Type Department Care Team (Late st Contact Info) Description 02/10/2021 Hospital Follow-up Call [facility] [address] [place] [address] Khushboo Prado, RN Social History Tobacco Use [...] COVID-19? No / Unsure 02/01/2021 7:37 PM CLINICAL SECRETARY documented as of this encounter Functional Status * RETIRED Are you deaf or do you have serious difficulty hearing Answer Date of Assessment Author Status No 02/02/2021 11:02 AM CLINICAL SECRETARY Acti ve * RETIRED Are you blind or do you have serious difficulty seeing, even when wearing glasses? Answer Date of Assessment Author Status No 02/02/2021 11:02 AM CLINICAL SECRETARY Acti ve * Do you have serious [...] on filedocumented in this encounter Care Teams Construction Driver Relationship Specialty Start Date End Date None, Provider, PCP - General 01/26/21 documented as of this encounter
--- OUTSIDE RECORDS SUMMARY | 2024-06-05 16:57 | XMS_ITS | Clinical Summary ---
Author Organization [facility] Address [address] [place] [address] Care Team Providers Care Quality Review Specialist Name Role Phone None, Provider MD Primary [...] Comments Blood Pressure 151/90 02/03/2021 11:42 AM SCHOOL LIBRARY MEDIA SPECIALIST Pulse 80 02/03/2021 8:47 AM SCHOOL LIBRARY MEDIA SPECIALIST Temperature 36.8 C (98.3 F) 02/03/2021 8:47 AM SCHOOL LIBRARY MEDIA SPECIALIST Respiratory Rate 18 02/03/2021 8:47 AM SCHOOL LIBRARY MEDIA SPECIALIST Oxygen Saturation 96% 02/03/2021 10:11 AM SCHOOL LIBRARY MEDIA SPECIALIST Inhaled Oxygen Concentration - - Weight 81.2 kg (179 lb) 02/01/2021 9:04 PM SCHOOL LIBRARY MEDIA SPECIALIST Height 162.6 cm (5' 4 ) 02/01/2021 9:04 PM SCHOOL LIBRARY MEDIA SPECIALIST Body Mass Index 30.73 02/01/2021 9:04 PM SCHOOL LIBRARY MEDIA SPECIALIST Plan of Treatment Health Maintenance Due Date [...] 7:38 AM 01/28/2021 10:04 PM Care Teams Quality Review Specialist Relationship Specialty Start Date End Date None, Provider, PCP - General 01/26/21
--- OUTSIDE RECORDS SUMMARY | 2024-06-05 16:57 | XMS_ITS | Encounter Summary ---
Author Organization [facility] Address [facility] [place] [address] Care Team Providers Care Institute Director Name Role Phone None, Provider Primary Care Provider Pura crook Encounter Details Date Type Department Care Team (Late st Contact Info) Description 02/12/2021 Hospital Follow-up Call [facility] [place] [address] Alexia Yoder, RN Social History Tobacco Use [...] COVID-19? No / Unsure 02/01/2021 7:37 PM BASKETBALL ASSEMBLER documented as of this encounter Functional Status * RETIRED Are you deaf or do you have serious difficulty hearing Answer Date of Assessment Author Status No 02/02/2021 11:02 AM BASKETBALL ASSEMBLER Acti ve * RETIRED Are you blind or do you have serious difficulty seeing, even when wearing glasses? Answer Date of Assessment Author Status No 02/02/2021 11:02 AM BASKETBALL ASSEMBLER Acti ve * Do you have serious [...] on filedocumented in this encounter Care Teams Institute Director Relationship Specialty Start Date End Date None, Provider, PCP - General 01/26/21 documented as of this encounter
[2024-06-05] MEDS: DICYCLOMINE HCL 10 MG CAPSULE 20 MG PO (17:32)
[2024-06-05] MEDS: PANTOPRAZOLE 40 MG TABLET PO (17:48)
== END 2024-06-05 18:55 | disposition home or self-care (01) ==
PROVIDERS: Emergency Medicine; Emergency Provider Student in an Organized Health Care Education/Training Program
DX: R10.13 Epigastric pain (principal); D50.9 Iron deficiency anemia, unspecified; D75.839 Thrombocytosis, unspecified
CPT/HCPCS: 36415; 74018; 80053; 81001; 81025; 83690; 85025; 99283; A9270